=== PATIENT | male | born 1970 | race Caucasian/White ===

== ENCOUNTER 2017-12-28 18:49 | Emergency (ER) | payer MEDICAID, SELFPAY ==
[2017-12-28 18:50] VITALS: BP 161/114; PULSE 113; RESP 16; TEMP 36.4; O2SAT 95; BMI 28.4
--- NOTE | 2017-12-28 19:29 | ED.VISSUMM ---
- ER Visit Summary Date of Service: 12/28/17 Chief Complaint: Headache with a history of migraines History of Present Illness: The patient is a 47 M his typical headache with a long history of migraines. States he has a neurologist. States that he has had CAT scans and MRIs. No history of intracranial bleeds nor anticoagulation or aneurysms. States this headache occurred in the last several days and basically he has headaches daily. He denies fever. He denies head trauma. He denies sinus congestion. This was not a thunderclap headache. Physical Examination: Middle-aged male darkened room. Vital signs are stable afebrile. Blood pressure is elevated 161/114. He does not look septic or toxic. He is no acute distress. HEENT exam photophobia. Pupils round reactive light. No trauma to his face or head. No frontal maxillary sinus tenderness. Pupils are round reactive light. Extra motions are intact. Normal speech. No facial droop. Neck nontender no meningismus. Able to touch his chin to his chest. Lungs clear to auscultation. Heart tachycardic no murmur. Abdomen soft nontender. Moving all 4 extremities. Neurovascular intact. 5 out of 5 power press tender strength. Dorsi plantar flexion intact. Neurologic exam normal. Normal speech. Normal ocular motions. No facial droop. Bilateral power press tender strength. Bilateral dorsi plantar flexion. NIH score is 0. Test Results: None Emergency Department Course and Treatment: Per patient request he wanted IM meds. He did not want an IV and he did not want to wait. He states he normally gets his medications to go home and sleeps it off. Treatment Plan: IM Toradol, p.o. Benadryl and IM Reglan. Disposition: Discharge Impression: Acute headache with a history of recurrent and frequent migraine headaches This note was generated with [employer] dictation software. It may contain incorrect words, spelling, and punctuation that were not noted in review of the chart prior to signing ED Disposition - Plan for ED Patient: Chief Complaint: Headache Referrals: Susan Ferris MD [Primary Care Provider] -
--- NOTE | 2017-12-28 19:32 | ED.DCSUM_ITS ---
- ER Visit Summary Date of Service: 12/28/17 Chief Complaint: Headache with a history of migraines History of Present Illness: The patient is a 47 M his typical headache with a long history of migraines. States he has a neurologist. States that he has had CAT scans and MRIs. No history of intracranial bleeds nor anticoagulation or aneurysms. States this headache occurred in the last several days and basically he has headaches daily. He denies fever. He denies head trauma. He denies sinus congestion. This was not a thunderclap headache. Physical Examination: Middle-aged male darkened room. Vital signs are stable afebrile. Blood pressure is elevated 161/114. He does not look septic or toxic. He is no acute distress. HEENT exam photophobia. Pupils round reactive light. No trauma to his face or head. No frontal maxillary sinus tenderness. Pupils are round reactive light. Extra motions are intact. Normal speech. No facial droop. Neck nontender no meningismus. Able to touch his chin to his chest. Lungs clear to auscultation. Heart tachycardic no murmur. Abdomen soft nontender. Moving all 4 extremities. Neurovascular intact. 5 out of 5 bank representative strength. Dorsi plantar flexion intact. Neurologic exam normal. Normal speech. Normal ocular motions. No facial droop. Bilateral bank representative strength. Bilateral dorsi plantar flexion. NIH score is 0. Test Results: None Emergency Department Course and Treatment: Per patient request he wanted IM meds. He did not want an IV and he did not want to wait. He states he normally gets his medications to go home and sleeps it off. Treatment Plan: IM Toradol, p.o. Benadryl and IM Reglan. Disposition: Discharge Impression: Acute headache with a history of recurrent and frequent migraine headaches This note was generated with [employer] dictation software. It may contain incorrect words, spelling, and punctuation that were not noted in review of the chart prior to signing ED Disposition - Plan for ED Patient: Chief Complaint: Headache Referrals: Susan Ferris MD [Primary Care Provider] -
--- NOTE | 2017-12-28 19:32 | ED.DEP ---
ED Disposition - Plan for ED Patient: Disposition: Home or Assisted Living Chief Complaint: Headache Instructions: ED Headache Migraine Referrals: Susan Ferris MD [Primary Care Provider] - As Needed
[2017-12-28] MEDS: DiphenhydrAMINE 25 MG Capsule 50 MG PO (19:36)
[2017-12-28] MEDS: Ketorolac 60 MG/2 ML Vial IM (19:36)
== END 2017-12-28 19:58 | disposition home or self-care (01) ==
PROVIDERS: Emergency Provider Emergency Medicine; Family Provider Internal Medicine; PCP Internal Medicine
DX: G43.909 Migraine, unspecified, not intractable, without status migrainosus (principal); Z79.899 Other long term (current) drug therapy
CPT/HCPCS: 96372; 99283

== ENCOUNTER 2018-03-09 18:18 | Emergency (ER) | payer MEDICAID, SELFPAY ==
[2018-03-09 18:21] VITALS: BP 144/98; PULSE 105; RESP 17; TEMP 36.7; O2SAT 95; BMI 29.2
--- NOTE | 2018-03-09 18:37 | ED.VISSUMM ---
- ER Visit Summary Date of Service: 03/09/18 Chief Complaint: Headache History of Present Illness: The patient is a 47 M presenting with headache ?1 month. Patient states this is his typical chronic migraine. He states that he was previously seeing a primary care physician and neurologist. He states at the beginning of the month his physicians are no longer accepting his insurance. He denies fever. Denies visual changes. Denies recent trauma. States he typically receives Toradol, Benadryl, Reglan with improvement of his headaches. Denies other complaints. Physical Examination: Vitals are stable. Patient is afebrile. Alert no acute distress. HEENT exam is unremarkable. Neck is supple. No meningismus Lungs are clear and equal bilaterally. Heart is regular rate and rhythm. Abdomen is soft nontender nondistended. Extremities are unremarkable. Skin is warm and dry. No focal neurologic deficit. Remainder of exam is unremarkable. Emergency Department Course and Treatment: Patient is advised that we do not have Reglan at this time. He declines Compazine or other medications. He is given Toradol and Benadryl IM with improvement. He is given Dr. Nicole certified lactation educator for no doc for follow-up. Advised return to ED for worsening complaints. Disposition: Discharged home Impression: Headache This note was generated with [employer] dictation software. It may contain incorrect words, spelling, and punctuation that were not noted in review of the chart prior to signing ED Disposition - Plan for ED Patient: Chief Complaint: Headache Referrals: Susan Ferris MD [Primary Care Provider] -
[2018-03-09] MEDS: Ketorolac 60 MG/2 ML Vial IM (18:43)
[2018-03-09] MEDS: DiphenhydrAMINE 50 MG/ML Syringe 25 MG IM (18:43)
--- NOTE | 2018-03-09 19:22 | ED.DEP ---
ED Disposition - Plan for ED Patient: Chief Complaint: Headache Instructions: ED Headache Migraine Referrals: Susan Ferris MD [Primary Care Provider] - Criss Nicole DO [NON-STAFF] -
[2018-03-09 19:32] VITALS: RESP 16
== END 2018-03-09 19:33 | disposition home or self-care (01) ==
PROVIDERS: Emergency Provider Emergency Medicine; Family Provider Internal Medicine; PCP Internal Medicine
DX: R51 Headache (principal); Z79.899 Other long term (current) drug therapy
CPT/HCPCS: 96372; 99282

== ENCOUNTER 2018-04-24 23:30 | Emergency (ER) | payer MEDICAID, SELFPAY ==
[2018-04-24 23:32] VITALS: BP 169/106; PULSE 105; RESP 18; TEMP 35.8; O2SAT 100; BMI 29.4
--- NOTE | 2018-04-24 23:50 | ED.DCSUM_ITS ---
- ER Visit Summary Date of Service: 04/24/18 Chief Complaint: Headache History of Present Illness: The patient is a 47 M who presents with a headache. History is limited as he is confrontational. While attempting to get history he stated can we just skip all this shit and give me meds. He complains of a headache over 2 weeks gradual onset gradually worsening. He notes that he normally improves with Toradol Reglan and Benadryl. He states this is just like his prior headaches. He denies any chest pain shortness of breath vomiting or fever. Physical Examination: Blood pressure 169/106 temperature 96.4 heart rate 105 pulse ox 100% on room air Patient has limited cooperation with physical examination, he is pacing in the examination room Pupils are equal round reactive to light Heart is regular rate and rhythm Lungs are clear Patient does not appear to have any focal or lateralizing neurological deficits no ataxia normal gait Test Results: Not indicated Emergency Department Course and Treatment: Patient given intramuscular Toradol Reglan and Benadryl muscularly and discharged per his request. Treatment Plan: [] Disposition: Discharge Impression: Migraine This note was generated with [employer] dictation software. It may contain incorrect words, spelling, and punctuation that were not noted in review of the chart prior to signing ED Disposition - Plan for ED Patient: Chief Complaint: Headache Referrals: Susan Ferris MD [Primary Care Provider] -
--- NOTE | 2018-04-24 23:50 | ED.DEP ---
ED Disposition - Plan for ED Patient: Chief Complaint: Headache Instructions: ED Headache Migraine Referrals: Susan Ferris MD [Primary Care Provider] -
[2018-04-25] MEDS: Ketorolac 60 MG/2 ML Vial IM (00:08)
[2018-04-25] MEDS: Metoclopramide 10 MG/2 ML Vial IM (00:08)
[2018-04-25] MEDS: DiphenhydrAMINE 50 MG/ML Syringe 25 MG IM (00:09)
[2018-04-25 00:16] VITALS: RESP 18
--- NOTE | 2018-04-25 00:29 | NURSING ---
PATIENT REPORTS NO REACTION PRIOR TO DISCHARGE.
== END 2018-04-25 00:29 | disposition home or self-care (01) ==
PROVIDERS: Emergency Provider Emergency Medicine; Family Provider Internal Medicine; PCP Internal Medicine
DX: G43.909 Migraine, unspecified, not intractable, without status migrainosus (principal); Z79.899 Other long term (current) drug therapy
CPT/HCPCS: 96372; 99282

== ENCOUNTER 2018-06-19 02:14 | Emergency (ER) | payer MEDICAID, SELFPAY ==
[2018-06-19 02:15] VITALS: BP 195/118; PULSE 87; RESP 16; TEMP 36.8; O2SAT 95; BMI 29.7
--- NOTE | 2018-06-19 02:19 | ED.VISSUMM ---
- ER Visit Summary Date of Service: 06/19/18 Chief Complaint: Migraine History of Present Illness: The patient is a 47 M presents to the emergency department headache. Patient has a history of migraines. He does follow with the neurologist. He has been on multiple medications and has had Botox injections. He describes his headache is gradually progressive over the past 3 days. He states it feels the same as his normal migraines. He denies any fevers or chills. He denies any neck pain. He denies any carbon monoxide exposure. Physical Examination: Well-appearing patient is in no acute distress. Head is normocephalic, atraumatic. Pupils equal round reactive, extraocular muscles intact. There is no temporal artery tenderness. There is no vesicular rash. Neck supple. Kernig's and Brudzinski's are negative. Heart regular rate and rhythm. Lungs clear, chest nontender. Abdomen soft, nontender, nondistended. Neuro exam displays no focal or lateralizing deficit. 2+ symmetric lower extremity reflexes. No clonus. No ataxia or gait abnormality. Test Results: [] Emergency Department Course and Treatment: Patient is well-appearing. He is mildly hypertensive, but states he has not taken his blood pressure medication. He is not toxic. He is not meningitic or encephalopathic. He requested IM medications. These were ordered. The patient does not want to stay, he rather go home because he states these always work. I did offer to observe him but he does not want to leave. He is counseled that if his symptoms do not improve or return he should return immediately to the emergency department. He is comfortable this plan of care. Treatment Plan: [] Disposition: Discharge Impression: Migraine headache This note was generated with [employer] dictation software. It may contain incorrect words, spelling, and punctuation that were not noted in review of the chart prior to signing ED Disposition - Plan for ED Patient: Chief Complaint: Headache Instructions: ED Headache Migraine Referrals: Susan Ferris MD [Primary Care Provider] -
[2018-06-19] MEDS: DiphenhydrAMINE 50 MG/ML Syringe IM (02:27)
[2018-06-19] MEDS: Ketorolac 60 MG/2 ML Vial IM (02:28)
[2018-06-19] MEDS: Metoclopramide 10 MG/2 ML Vial IM (02:29)
== END 2018-06-19 02:38 | disposition home or self-care (01) ==
LOC: ED 02:36
PROVIDERS: Emergency Provider Emergency Medicine; Family Provider Internal Medicine; PCP Internal Medicine
DX: G43.909 Migraine, unspecified, not intractable, without status migrainosus (principal); Z72.0 Tobacco use; Z79.899 Other long term (current) drug therapy
CPT/HCPCS: 96372; 99281

== ENCOUNTER 2018-08-03 00:40 | Emergency (ER) | payer MEDICAID, SELFPAY ==
[2018-08-03 00:41] VITALS: BP 174/117; PULSE 89; RESP 16; TEMP 36.9; O2SAT 98
--- NOTE | 2018-08-03 01:29 | ED.VISSUMM ---
- ER Visit Summary Date of Service: 08/03/18 Chief Complaint: [Headache] History of Present Illness: The patient is a 47 M [presents the emergency department with a headache that he sat chronically. Patient states he always has some headache but usually waits until he cannot tolerate any more than comes to the emergency department. Patient states that he has seen a neurologist and has gone through Botox injections and various other treatments. Typically Toradol, Benadryl, and Reglan worked for him. Patient describes the headache as throbbing and severe involving the entire head. He complains of photophobia and loud sounds bothering him. Headache is typical of his migraines. He has not had any falls or head injuries. He has not had recent illness.] Physical Examination: [HEENT-PERRLA, EOMI. Cranial nerves II through XII grossly intact. TMs clear. Mucous membranes moist. No adenopathy. Cardiovascular-regular rate and rhythm without murmur or ectopy Lungs-clear to auscultation, chest wall stable without crepitus or subcu emphysema Abdomen-normoactive bowel sounds, soft, nontender, no rebound or rigidity, no peritoneal signs. Neuro xcjv-[id number]-droa and heel cheek testing within normal limits, negative Romberg, negative pronator drift, fundi benign Extremities-intact ?4, normal range of motion, normal pulses, atraumatic] Test Results: None indicated [] Emergency Department Course and Treatment: [Patient was given Toradol, Reglan, Benadryl IM.] Patient did not want IV fluids. Patient does not wish to wait for the medication to take effect. Treatment Plan: [Patient follow-up with his primary care physician as needed Disposition: [Discharged home in stable condition] Impression: [Migrainous cephalgia.] This note was generated with [employer] dictation software. It may contain incorrect words, spelling, and punctuation that were not noted in review of the chart prior to signing ED Disposition - Plan for ED Patient: Chief Complaint: Headache Referrals: Susan Ferris MD [Primary Care Provider] -
--- NOTE | 2018-08-03 01:31 | ED.DEP ---
ED Disposition - Plan for ED Patient: Chief Complaint: Headache Instructions: ED Headache Migraine Referrals: Susan Ferris MD [Primary Care Provider] - As Needed
[2018-08-03] MEDS: DiphenhydrAMINE 50 MG/ML Syringe 25 MG IM (01:39)
[2018-08-03] MEDS: Metoclopramide 10 MG/2 ML Vial IM (01:39)
[2018-08-03] MEDS: Ketorolac 60 MG/2 ML Vial IM (01:40)
[2018-08-03 01:43] VITALS: PULSE 78; RESP 16; O2SAT 98
== END 2018-08-03 02:07 | disposition home or self-care (01) ==
PROVIDERS: Emergency Provider Emergency Medicine; Family Provider Internal Medicine; PCP Internal Medicine
DX: G43.909 Migraine, unspecified, not intractable, without status migrainosus (principal); Z79.899 Other long term (current) drug therapy
CPT/HCPCS: 96372; 99282

== ENCOUNTER 2018-08-24 05:32 | Emergency (ER) | payer MEDICAID, SELFPAY ==
[2018-08-24 05:33] VITALS: BP 166/106; PULSE 116; RESP 20; TEMP 36.6; O2SAT 94; BMI 29.5
--- NOTE | 2018-08-24 05:43 | ED.DCSUM_ITS ---
- ER Visit Summary Date of Service: 08/24/18 Chief Complaint: Headache History of Present Illness: The patient is a 47 M who presents with a headache. He has a history of chronic headaches for years. He states that this is exactly the same in character and location to his previous headaches. He states he has had his current persistent headache for at least 3 weeks. He is actually scheduled to see his neurologist. He states they plan to start him on a new medication. He does report photophobia which is also typical of his migraines. He states that he is just here to get his shots and wants to go home. He denies fevers nausea vomiting or head injury. Physical Examination: Blood pressure 166/106 heart rate 116 Moist mucous membranes Neck supple Heart regular rate and rhythm Lungs clear Alert and oriented with no focal or lateralizing neurological deficits Test Results: Not indicated Emergency Department Course and Treatment: Patient treated with intramuscular Toradol Reglan and Benadryl which is usual medication combination that provides relief. Patient discharged. Treatment Plan: [] Disposition: Discharge Impression: Chronic headache This note was generated with [employer] dictation software. It may contain incorrect words, spelling, and punctuation that were not noted in review of the chart prior to signing ED Disposition - Plan for ED Patient: Chief Complaint: Headache Referrals: Susan Ferris MD [Primary Care Provider] -
--- NOTE | 2018-08-24 05:43 | ED.DEP ---
ED Disposition - Plan for ED Patient: Chief Complaint: Headache Instructions: ED Cephalgia Unspecified Referrals: Susan Ferris MD [Primary Care Provider] -
[2018-08-24] MEDS: Ketorolac 60 MG/2 ML Vial IM (05:48)
[2018-08-24] MEDS: Metoclopramide 10 MG/2 ML Vial IM (05:48)
[2018-08-24] MEDS: DiphenhydrAMINE 50 MG/ML Syringe 25 MG IM (05:49)
[2018-08-24 06:05] VITALS: BP 143/113; PULSE 107; RESP 14; O2SAT 93
== END 2018-08-24 06:07 | disposition home or self-care (01) ==
PROVIDERS: Emergency Provider Emergency Medicine; Family Provider Internal Medicine; PCP Internal Medicine
DX: R51 Headache (principal); G89.29 Other chronic pain; H53.149 Visual discomfort, unspecified; Z79.899 Other long term (current) drug therapy
CPT/HCPCS: 96372; 99282

== ENCOUNTER 2018-10-18 03:58 | Emergency (ER) | payer MEDICAID, SELFPAY ==
[2018-10-18 03:58] VITALS: BMI 28.4
[2018-10-18 03:59] VITALS: BP 154/118; PULSE 86; RESP 16; TEMP 36.4; O2SAT 95; BMI 29.9
--- NOTE | 2018-10-18 04:04 | ED.VISSUMM ---
- ER Visit Summary Date of Service: 10/18/18 Chief Complaint: Headache History of Present Illness: The patient is a 47 M who has a long history of headaches/migraines. He states that he is recently been started on a new medication with his neurologist at [facility]. He states that since starting it it has been about 2 months since he is needed to come to the emergency room. He notes bitemporal headache, nausea, photophobia. He apologizes for his current behavior but states that he is over this. He states he just wants his shots and wants to go home to go to sleep. Physical Examination: Afebrile vital signs stable Gen: Well-nourished well-developed Head: Normocephalic atraumatic Eyes: Perrl EOMI no photophobia ENT: TMs clear no rhinorrhea moist mucous membranes Neck: Supple no lymphadenopathy no JVD nontender CVS: Regular rate rhythm no murmurs normal S1-S2 Respiratory: No distress clear to auscultation bilaterally chest nontender Abdomen: Soft nontender nondistended normal bowel sounds no masses Extremity: Nontender no edema Skin: Normal color no rash Neuro: alert orientated ?3 CN II-XII intact normal strength sensation reflexes gait cerebellar Emergency Department Course and Treatment: Patient will be given a dose of Toradol Reglan and Benadryl. He needs to follow-up with his doctors. I am going to leave a message for case management. Impression: 1. Migraine headache This note was generated with [employer] dictation software. It may contain incorrect words, spelling, and punctuation that were not noted in review of the chart prior to signing ED Disposition - Plan for ED Patient: Disposition: Home or Assisted Living Chief Complaint: Headache Instructions: ED Headache Migraine Referrals: Susan Ferris MD [Primary Care Provider] - Keep Kenzie appointment
--- NOTE | 2018-10-18 04:11 | ED.DCSUM_ITS ---
- ER Visit Summary Date of Service: 10/18/18 Chief Complaint: Headache History of Present Illness: The patient is a 47 M who has a long history of headaches/migraines. He states that he is recently been started on a new medication with his neurologist at [facility]. He states that since starting it it has been about 2 months since he is needed to come to the emergency room. He notes bitemporal headache, nausea, photophobia. He apologizes for his current behavior but states that he is over this. He states he just wants his shots and wants to go home to go to sleep. Physical Examination: Afebrile vital signs stable Gen: Well-nourished well-developed Head: Normocephalic atraumatic Eyes: Perrl EOMI no photophobia ENT: TMs clear no rhinorrhea moist mucous membranes Neck: Supple no lymphadenopathy no JVD nontender CVS: Regular rate rhythm no murmurs normal S1-S2 Respiratory: No distress clear to auscultation bilaterally chest nontender Abdomen: Soft nontender nondistended normal bowel sounds no masses Extremity: Nontender no edema Skin: Normal color no rash Neuro: alert orientated ?3 CN II-XII intact normal strength sensation reflexes gait cerebellar Emergency Department Course and Treatment: Patient will be given a dose of Toradol Reglan and Benadryl. He needs to follow-up with his doctors. I am going to leave a message for case management. Impression: 1. Migraine headache This note was generated with [employer] dictation software. It may contain incorrect words, spelling, and punctuation that were not noted in review of the chart prior to signing ED Disposition - Plan for ED Patient: Disposition: Home or Assisted Living Chief Complaint: Headache Instructions: ED Headache Migraine Referrals: Susan Ferris MD [Primary Care Provider] - Keep Kenzie appointment
[2018-10-18] MEDS: Ketorolac 60 MG/2 ML Vial IM (04:26)
[2018-10-18] MEDS: Metoclopramide 10 MG/2 ML Vial IM (04:27)
[2018-10-18] MEDS: DiphenhydrAMINE 50 MG/ML Syringe IV (04:27)
== END 2018-10-18 04:44 | disposition home or self-care (01) ==
PROVIDERS: Emergency Provider Emergency Medicine; Family Provider Internal Medicine; PCP Internal Medicine
DX: G43.909 Migraine, unspecified, not intractable, without status migrainosus (principal); I10 Essential (primary) hypertension; Z79.899 Other long term (current) drug therapy
CPT/HCPCS: 96372; 96374; 99282

== ENCOUNTER 2018-12-07 07:44 | Emergency (ER) | payer MEDICAID, SELFPAY ==
[2018-12-07 07:45] VITALS: BP 175/97; PULSE 90; RESP 18; TEMP 36.1; O2SAT 98; BMI 29.7
[2018-12-07 07:48] VITALS: TEMP 36.1
--- NOTE | 2018-12-07 08:02 | ED.DCSUM_ITS ---
- ER Visit Summary Date of Service: 12/07/18 Chief Complaint: Dental pain History of Present Illness: The patient is a 48 M with dental pain that started yesterday evening while eating dinner. The pain is in his left mandible region. Pain is severe. No other complaints. He tried Orajel. Physical Examination: Afebrile and vital signs unremarkable. Inspection shows focal decay and tenderness at tooth #17. No abscess noted. Gums unremarkable. No tongue elevation or trismus noted. Skin appears normal. No meningeal signs. No lymphadenopathy. Cranial nerves grossly intact. Test Results: None indicated Emergency Department Course and Treatment: Patient treated with Pen-Vee K, naproxen, and Corona here. He received a prescription for naproxen and Pen-Vee K. Follow-up with his dentist. Return for any new or worsening issues. Treatment Plan: As above Disposition: Discharge Impression: 1. Dental pain This note was generated with [employer] dictation software. It may contain incorrect words, spelling, and punctuation that were not noted in review of the chart prior to signing ED Disposition - Plan for ED Patient: Chief Complaint: Dental Referrals: Susan Ferris MD [Primary Care Provider] -
--- NOTE | 2018-12-07 08:02 | ED.DEP ---
ED Disposition - Plan for ED Patient: Chief Complaint: Dental Instructions: ED Tooth Pain Prescriptions: Naproxen [Naprosyn] 500 mg PO BID PRN #20 tab Penicillin V Potassium 500 mg PO 4X/DAY #40 tab Additional Instructions: follow up with your dentist
[2018-12-07] MEDS: Penicillin Vk 250 MG Tablet 500 MG PO (08:19)
[2018-12-07] MEDS: HYDROcodone Bitartrate/Apap 5/325 Tablet PO (08:19)
[2018-12-07] MEDS: Naproxen 500 MG Tablet PO (08:19)
== END 2018-12-07 08:26 | disposition home or self-care (01) ==
PROVIDERS: Emergency Provider Emergency Medicine; Family Provider Internal Medicine; PCP Internal Medicine
DX: K08.89 Other specified disorders of teeth and supporting structures (principal); K02.9 Dental caries, unspecified; G43.909 Migraine, unspecified, not intractable, without status migrainosus; Z79.899 Other long term (current) drug therapy
CPT/HCPCS: 99283

== ENCOUNTER 2019-01-18 22:43 | Emergency (ER) | payer MEDICAID, SELFPAY ==
[2019-01-18 22:44] VITALS: BP 159/102; PULSE 85; RESP 18; TEMP 36.7; O2SAT 98; BMI 29.2
--- NOTE | 2019-01-18 23:15 | ED.VISSUMM ---
- ER Visit Summary Date of Service: 01/18/19 Chief Complaint: Migraine History of Present Illness: The patient is a 48 M presents with his typical migraine. He states that he has been to the emergency department 125 times for this. He denies any new or concerning features. It was not sudden or severe at onset. It is the exact same as usual. He would like intramuscular Toradol, Benadryl, and Reglan and then he states that he will go home and rest. Physical Examination: Vitals within normal limits. Not in distress. Neurologic and mental status exam normal. Test Results: None performed Emergency Department Course and Treatment: He was given his medications as requested. He felt better. Discharged in stable condition. Neurologic exam normal. He does not want a CT scan. Treatment Plan: Disposition: Home stable Impression: Initial encounter migraine headache This note was generated with [employer] dictation software. It may contain incorrect words, spelling, and punctuation that were not noted in review of the chart prior to signing ED Disposition - Plan for ED Patient: Instructions: ED Headache Migraine Referrals: Susan Ferris MD [Primary Care Provider] -
[2019-01-18] MEDS: Metoclopramide 10 MG/2 ML Vial 5 MG IM (23:34)
[2019-01-18] MEDS: DiphenhydrAMINE 50 MG/ML Syringe IM (23:34)
[2019-01-18] MEDS: Ketorolac 60 MG/2 ML Vial IM (23:34)
[2019-01-19 00:09] VITALS: BP 145/75; PULSE 85; RESP 17; O2SAT 99
== END 2019-01-19 00:10 | disposition home or self-care (01) ==
LOC: ED 23:29
PROVIDERS: Emergency Provider Emergency Medicine; Family Provider Internal Medicine; PCP Internal Medicine
DX: G43.909 Migraine, unspecified, not intractable, without status migrainosus (principal); Z79.899 Other long term (current) drug therapy
CPT/HCPCS: 96372; 99282

== ENCOUNTER 2019-06-21 21:35 | Emergency (ER) | payer MEDICAID, SELFPAY ==
[2019-06-21 21:36] VITALS: BP 148/88; PULSE 71; PULSE 78; RESP 17; RESP 18; TEMP 36.2; O2SAT 95; BMI 29.0
--- NOTE | 2019-06-21 22:34 | ED.DCSUM_ITS ---
- ER Visit Summary Date of Service: 06/21/19 Chief Complaint: Abdominal pain History of Present Illness: The patient is a 48 M who presents with abdominal pain. Patient complains of about 2 weeks of lower abdominal pain which is worse on the left side. He also complains of pain across his lower back. He states his pain goes down into his left thigh. He describes it as pressure-like fullness. No nausea vomiting diarrhea or fevers. He does complain of constipation. He was seen at [place] emergency department last night started on Colace for constipation. He has had a bowel movement since that time. He states he is worried this could be related to his thyroid. He is also concerned that he has a bacterial infection. Physical Examination: Afebrile vitals normal No distress resting comfortably Moist mucous membranes Heart regular rate and rhythm Lungs are clear The abdomen soft nontender nondistended Normal examination of the left lower extremity no soft tissue swelling no ecchymosis he does have some thigh tenderness Test Results: CBC CMP lipase urinalysis all normal. CT of the abdomen and pelvis shows incomplete distention of the descending and sigmoid colon and wall thickening cannot be ruled out. Emergency Department Course and Treatment: Work-up as above essentially unremarkable. CT the abdomen and pelvis does not show overt evidence of acute process although wall thickening cannot be ruled out. Based on this alone I would not empirically treat for colitis at this time. However I did recommend that he have further outpatient work-up such as a colonoscopy. He was advised to follow-up with his primary care physician for referral. He understands to return for new or worsening symptoms and was discharged home. Treatment Plan: [] Disposition: Discharge Impression: Abdominal pain This note was generated with [employer] dictation software. It may contain incorrect words, spelling, and punctuation that were not noted in review of the chart prior to signing ED Disposition - Plan for ED Patient: Referrals: Susan Ferris MD [Primary Care Provider] -
[2019-06-21 23:05] LABS: Bacteria 0 SEEN /hpf (None Seen); Mucous, Urine 0 SEEN /hpf (<or=2+); Red Blood Cells-Urine 0 SEEN /hpf (0-5); Squamous Epithelial Cells - UA 0 SEEN /hpf (0-5); White Blood Cells 0 SEEN /hpf (0-5)
[2019-06-21 23:06] LABS: Absolute Lymphocyte Count 2.59 X10^3/uL (0.83-4.51); Absolute Neutrophil Count 4.9 X10^3/uL (2.0-7.7); Basophil# 0.06 X10^3/uL; Basophil% 0.7 % (0-1); Eosinophil# 0.19 X10^3/uL; Eosinophils% 2.3 % (0-5); Hematocrit 48.1 % (40-54); Hemoglobin 16.2 g/dL (13.0-16.5); Lymphocyte # 2.59 X10^3/ul (4.0); Lymphocyte % 31.1 % (19-41); Mean Corp Hgb Conc 33.7 g/dL (32-36); Mean Corpuscular Hgb 30.9 pg (27.0-32.0); Mean Corpuscular Volume 91.6 fL (80-94); Monocyte# 0.53 X10^3/uL; Monocyte% 6.4 % (0-10); NRBC Flagged by Analyzer 0 % (0-5); Neutrophil # 4.94 X10^3/uL (2.7-7.7); Neutrophil % 59.3 % (47-70); Platelet Count 264 K/mm3 (150-450); RBC Distribution Width CV 11.9 % (11.6-14.6); RBC Distribution Width SD 40.1 fl (35.1-43.9); Red Blood Count 5.25 M/mm3 (4.6-6.2); White Blood Count 8.3 K/mm3 (4.4-11.0)
[2019-06-21 23:11] LABS: Color, Urine Yellow (Yellow); Glucose, Dipstick Normal (Normal); Ketone-Dipstick Negative (Negative); Leukocyte Esterase-Dipstick Negative /ul (Negative); Nitrite-Dipstick Negative (Negative); Occult Blood-Urine Negative /ul (Negative); Protein-Dipstick Negative (Negative); Urine Bilirubin Dipstick Negative (Negative); Urine Clarity Cloudy (Clear); Urine Urobilinogen Normal (Normal)
[2019-06-21 23:16] LABS: Amorphous Sediment 2+
[2019-06-21 23:22] LABS: ALB/GLOB Ratio 1.3 RATIO (0.9-2.4); AST(SGOT) 20 U/L (15-37); Alanine Aminotransfer ALT/SGPT 30 U/L (16-61); Albumin, Serum 4.3 g/dL (3.2-5.0); Alkaline Phosphatase 114 U/L (45-117); Anion Gap 4 (5-15); BUN 10 mg/dL (7-18); BUN/Creat Ratio 9.4 RATIO (10-20); Calcium,Total 8.8 mg/dL (8.5-10.1); Chloride 106 mmol/L (98-107); Creatinine, Serum 1.06 mg/dL (0.70-1.30); EST Glomerular Filtration Rate 79 mL/min (>60); Est Glom Filt Rate - Afr Amer 96 mL/min (>60); Estimated Creatinine Clearance 83.35 ml/min; Globulin 3.3 g/dL (2.2-4.2); Glucose 84 mg/dL (74-106); Lipase 125 U/L (73-393); Potassium 4.2 mmol/L (3.5-5.1); Protein, Total 7.6 g/dL (6.4-8.2); Sodium Level 141 mmol/L (136-145)
--- NOTE | 2019-06-22 00:15 | CT_ITS ---
HISTORY:LOW ABD AND LT GROIN PAIN X SEVERAL WEEKS. Prior appendectomy LOW ABD AND LT GROIN PAIN X SEVERAL WEEKS. Prior appendectomy TECHNIQUE: Helically acquired images were obtained of the abdomen and pelvis following IV contrast. A radiation dose optimization technique was used for this scan. IV Contrast dosage and agent:100ml Isovue 300 Oral contrast: Yes COMPARISON: None FINDINGS: # of images incl. paperwork: [phone] LOWER CHEST: Lung bases are clear. No cardiomegaly or pericardial effusion observed. LIVER: Homogeneous. No focal mass. GALLBLADDER AND BILIARY TREE: No calcified gallstones. There is no gallbladder distension or wall edema. No intra- or extrahepatic biliary ductal dilation. KIDNEYS AND URETERS: Normal renal size and position. There is no hydronephrosis. ADRENAL GLANDS: Non-enlarged. SPLEEN: Normal size without focal cystic or solid mass. PANCREAS: No focal cystic or solid mass. BOWEL: The stomach is unremarkable The small bowel is unremarkable No mechanical obstruction No diverticulitis There is incomplete distention of the descending and sigmoid colon. Appendectomy LYMPH NODES: No enlarged mesenteric or retroperitoneal lymph nodes. PERITONEUM: No ascites or free air. No other fluid collection. VESSELS: Aorta is non-dilated. URINARY BLADDER: Incompletely distended, otherwise grossly unremarkable. REPRODUCTIVE ORGANS: The prostate gland measures approximately 4.2 x 3.6 cm ABDOMINAL WALL: No discrete abdominal or pelvic wall hernia observed. BONES: No acute osseous abnormality CT/Abdomen/Pelvis WITH Contrast IMPRESSION: Incomplete distention of the descending and sigmoid colon. I cannot exclude wall thickening. Correlate clinically for colitis. Appendectomy No evidence of an inguinal hernia Individualized dose optimization techniques were used for this CT. at 0044 Reported and signed by: Ruby Chu DO Electronically Signed: Ruby Chu DO at 0:42 EDT Tel , Service support ,
--- NOTE | 2019-06-22 01:13 | ED.DEP ---
ED Disposition - Plan for ED Patient: Instructions: ABDOMINAL PAIN, Unkown Cause, (Male) Referrals: Susan Ferris MD [Primary Care Provider] -
[2019-06-22 01:21] VITALS: PULSE 81; RESP 16; O2SAT 100
== END 2019-06-22 01:22 | disposition home or self-care (01) ==
LOC: ED 22:43
PROVIDERS: Emergency Provider Emergency Medicine; Family Provider Internal Medicine; PCP Internal Medicine
DX: R10.9 Unspecified abdominal pain (principal); K59.00 Constipation, unspecified; M54.5 Low back pain; I10 Essential (primary) hypertension; F31.9 Bipolar disorder, unspecified; Z79.899 Other long term (current) drug therapy
CPT/HCPCS: 74177; 80053; 81001; 83690; 85025; 99283; Q9967

== ENCOUNTER → 2019-07-19 15:31 | Outpatient (CLI) | payer MEDICAID, SELFPAY ==
[2019-06-21 21:36] VITALS: BMI 29.0
== END ==
PROVIDERS: Family Provider Internal Medicine; PCP Internal Medicine; Referring Provider Otolaryngology Otolaryngology/Facial Plastic Surgery; Visit Provider Otolaryngology Otolaryngology/Facial Plastic Surgery
DX: J02.9 Acute pharyngitis, unspecified (principal)
CPT/HCPCS: 87070; 87077

== ENCOUNTER 2020-07-28 06:11 | Emergency (ER) | payer MEDICAID, SELFPAY ==
[2020-07-28 06:12] VITALS: BP 155/117; PULSE 89; RESP 12; TEMP 36.9; BMI 31.7
[2020-07-28 06:18] VITALS: O2SAT 93
--- NOTE | 2020-07-28 06:26 | EKG12_ITS ---
Test Reason : CP Blood Pressure : / mmHG Vent. Rate : 088 BPM Atrial Rate : 088 BPM P-R Int : 150 ms QRS Dur : 092 ms QT Int : 370 ms P-R-T Axes : 063 030 045 degrees QTc Int : 447 ms Normal sinus rhythm Normal ECG Confirmed by CHERYL GREER, LILLY ([id number]), publishing editor LUIS A TEJADA ([id number]) on 07/31/2020 11:21:09 AM Referred By: REUBEN Confirmed By:LILLY LUNA MD
--- NOTE | 2020-07-28 06:26 | ED.DCSUM_ITS ---
History of Present Illness Chief Complaint: Chest Pain Informant: Patient Onset: Days - 3 days Context: Gradual Onset Current Severity: Mild Maximum Severity: Moderate Narrative: Patient presents with waxing and waning chest tightness over the past 3 days. He believes this is secondary to his blood pressure being elevated. Systolic pressures been in the 150s. He denies recent change to his blood pressure medication. He denies headache, nausea, or vomiting. He does have intermittent shortness of breath. - Past Medical History (1) GERD (gastroesophageal reflux disease) Status: Chronic (2) Hypertension Status: Chronic (3) Asthma Status: Chronic (4) Bipolar 1 disorder Status: Chronic Past Medical History - Allergies and Home Meds Allergies/Adverse Reactions: Allergies No Known Allergies Allergy (Verified 07/28/20 06:17) Primary Care Physician: Susan Ferris MD [Primary Care Provider] - Prior records reviewed: Yes Surgical History: appendectomy Lives: Spouse/ Significant Other Smoking Status: Never smoker Review of Systems General: Denies: Chills, Fever Eyes: Denies: Visual changes - bilaterally ENT: Denies: Bilateral ear pain Cardiovascular: Reports: Chest pain. Denies: Heart racing Respiratory: Reports: Dyspnea. Denies: Cough, Sputum Gastrointestinal: Denies: Abdominal pain, Nausea, Vomiting, Diarrhea Musculoskeletal: Denies: Back pain, Swelling, Extremity Pain Skin: Denies: Rash Neurological: Denies: Headache, Weakness, Parasthesia Hematologic: Denies: Easy bruising, Easy bleeding Allergy: Denies: Uticaria Physical Exam Vital Signs/Narrative: Vital Signs Temp Pulse Resp BP Pulse Ox 07/28/20 06:18 93 07/28/20 06:12 98.5 F 89 12 155/117 H Inital Vital Signs reviewed: Yes General: Well nourished, Well developed Head: Normocephalic ENT: Moist mucous membranes Neck: Supple Cardiovascular: Regular rate, Regular rhythm Respiratory: No distress, CTA bilaterally, Chest nontender Abdomen: Soft, Nontender Extremities: Nontender Skin: Normal color Neurological: Alert, Oriented x3, Normal Strength, Normal Sensation Psychological: Normal affect Diagnostic/Tx/Re-eval Impressions Chest X-Ray 07/28/20 06:35 IMPRESSION: No acute cardiopulmonary disease. Electronically Signed: Kyle Saavedra MD at 6:46 EDT , Service support , 07/28/20 06:35 Chest 1 View (Portable) [RAD] Stat Laboratory Results 07/28/20 07/28/20 06:17 06:17 WBC 10.4 RBC 5.16 Hgb 16.3 Hct 47.2 MCV 91.5 MCH 31.6 MCHC 34.5 RDW Std Deviation 39.6 RDW Coeff of Elan 11.9 Plt Count 320 MPV 9.0 Immature Gran % (Auto) 0.300 Neut % (Auto) 53.1 Lymph % (Auto) 34.6 [place] % (Auto) 7.6 Eos % (Auto) 3.7 Baso % (Auto) 0.7 Absolute Neuts (auto) 5.5 Absolute Lymphs (auto) 3.59 Nucleated RBC % 0 Sodium 139 Potassium 4.1 Chloride 105 Carbon Dioxide 29.0 Anion Gap 5 BUN 19 H Creatinine 1.12 Estim Creat Clear Calc 78.04 Est GFR (MDRD) Af Amer 90 Est GFR (MDRD) Non-Af 74 BUN/Creatinine Ratio 17.0 Glucose 101 Calcium 8.8 Troponin I < 0.015 - EKG Initial EKG Interpretation: Sinus Rhythm - Sinus 88 with no acute ischemia. - Medical Decision Making Patient was initially given 5 mg Lopressor for blood pressure. Blood pressure remained elevated around 160 systolic. He was then given a total of 20 mg of labetalol. At this time patient states he feels significantly improved. He does advise me that his doctor had placed him on his second blood pressure medicine not too long ago, however he did not like the idea of taking 2 medicines so he never took the second agent. He states he is now willing to do so. I spoke with his primary care physician, Dr. Ferris. Patient had most recently been placed on metoprolol in addition to his verapamil. He will be given a new prescription for this. He is advised to get a new blood pressure cuff and keep a journal of his blood pressures at home. He is to follow-up with Dr. Ferris in 2 to 3 weeks. ED Disposition - Plan for ED Patient: Disposition: Home or Assisted Living Diagnosis: Hypertension, Atypical chest pain Instructions: ED Hypertension Established Prescriptions: Metoprolol(XL)Succ [Toprol Xl (Beta Ana)] 50 mg PO DAILY #30 tab Transmission Status: Pending to [facility] - [place] - [address] Referrals: Susan Ferris MD [Primary Care Provider] - 1-2 Weeks
[2020-07-28 06:32] LABS: Absolute Lymphocyte Count 3.59 X10^3/uL (0.83-4.51); Absolute Neutrophil Count 5.5 X10^3/uL (2.0-7.7); Basophil# 0.07 X10^3/uL; Basophil% 0.7 % (0-1); Eosinophil# 0.38 X10^3/uL; Eosinophils% 3.7 % (0-5); Hematocrit 47.2 % (40-54); Hemoglobin 16.3 g/dL (13.0-16.5); Lymphocyte # 3.59 X10^3/ul (4.0); Lymphocyte % 34.6 % (19-41); Mean Corp Hgb Conc 34.5 g/dL (32-36); Mean Corpuscular Hgb 31.6 pg (27.0-32.0); Mean Corpuscular Volume 91.5 fL (80-94); Monocyte# 0.79 X10^3/uL; Monocyte% 7.6 % (0-10); NRBC Flagged by Analyzer 0 % (0-5); Neutrophil # 5.53 X10^3/uL (2.7-7.7); Neutrophil % 53.1 % (47-70); Platelet Count 320 K/mm3 (150-450); RBC Distribution Width CV 11.9 % (11.6-14.6); RBC Distribution Width SD 39.6 fl (35.1-43.9); Red Blood Count 5.16 M/mm3 (4.6-6.2); White Blood Count 10.4 K/mm3 (4.4-11.0)
--- NOTE | 2020-07-28 06:35 | RAD_ITS ---
STUDY: X-RAY CHEST REASON FOR EXAM: Male, 49 years old. Chest tightness for one day. History of hypertension. TECHNIQUE: AP portable chest. COMPARISON: February 07, 2014. FINDINGS: The lungs are clear and expanded. There is no demonstrated pleural abnormality. Normal size heart. Normal mediastinum and salina. Normal visualized pulmonary arteries. Normal visualized aortic arch and descending thoracic aorta. Normal visualized thoracic spine. Normal visualized ribs, clavicles, and shoulders. There is no demonstrated abnormality of the visualized soft tissue structures of the upper abdomen. RAD/Chest 1 View (Portable) IMPRESSION: No acute cardiopulmonary disease. Electronically Signed: Kyle Saavedra MD at 6:46 EDT , Service support ,
[2020-07-28] MEDS: Metoprolol Tartrate 5 MG/5 ML Vial IV (06:45)
[2020-07-28] MEDS: Aspirin 81 MG TAB.CHEW 324 MG PO (06:45)
[2020-07-28 06:58] LABS: Anion Gap 5 (5-15); BUN 19 mg/dL (7-18); Calcium,Total 8.8 mg/dL (8.5-10.1); Chloride 105 mmol/L (98-107); Creatinine, Serum 1.12 mg/dL (0.70-1.30); EST Glomerular Filtration Rate 74 mL/min (>60); Est Glom Filt Rate - Afr Amer 90 mL/min (>60); Estimated Creatinine Clearance 78.04 ml/min; Glucose 101 mg/dL (74-106); Potassium 4.1 mmol/L (3.5-5.1); Sodium Level 139 mmol/L (136-145)
[2020-07-28 07:53] VITALS: BP 162/105; PULSE 64; RESP 18; O2SAT 98
[2020-07-28] MEDS: Labetalol (Prefilled) 20 MG/4 ML 10 MG IV (07:55)
[2020-07-28 08:03] VITALS: BP 153/99; PULSE 73; RESP 13; O2SAT 98
[2020-07-28 08:25] VITALS: BP 145/112; PULSE 67; RESP 12; O2SAT 98
[2020-07-28] MEDS: Labetalol 100 MG/20 ML Vial 10 MG IV (08:25)
[2020-07-28 08:53] VITALS: BP 148/104; PULSE 74; RESP 14; O2SAT 97
== END 2020-07-28 09:00 | disposition home or self-care (01) ==
PROVIDERS: Emergency Provider Emergency Medicine; PCP Internal Medicine
DX: I10 Essential (primary) hypertension (principal); R07.89 Other chest pain; F31.9 Bipolar disorder, unspecified
CPT/HCPCS: 71045; 80048; 84484; 85025; 93005; 96374; 96375; 96376; 99284; A4216

== ENCOUNTER 2020-09-07 06:58 | Emergency (ER) | payer MEDICAID, SELFPAY ==
[2020-08-27 12:40] VITALS: BMI 31.7
[2020-09-07 06:59] VITALS: BP 168/101; PULSE 107; RESP 22; TEMP 37.1; O2SAT 96; BMI 31.4
--- NOTE | 2020-09-07 07:06 | ED.DEP ---
ED Disposition - Plan for ED Patient: Instructions: ED Tooth Pain Prescriptions: Naproxen [Naprosyn] 500 mg PO BID PRN #20 tab Prescription Printed Penicillin V Potassium 500 mg PO 4X/DAY #40 tab Prescription Printed Referrals: Susan Ferris MD [Primary Care Provider] -
--- NOTE | 2020-09-07 07:09 | ED.VISSUMM ---
- ER Visit Summary Date of Service: 09/07/20 Chief Complaint: Dental pain History of Present Illness: The patient is a 49 M presenting with dental pain. Patient states this started 2 days ago. He felt his tooth crack. He has tried Tylenol and Orajel at home. He has a dentist but is unable to be seen on the weekend. He denies fever. Denies swelling. Denies other complaints. Physical Examination: Vitals are stable. Patient is afebrile. Alert no acute distress. HEENT exam tenderness left upper and lower molar. Fractured tooth surrounding his filling in left lower molar. No surrounding fluctuance. No sublingual edema. Neck is supple. Lungs are clear and equal bilaterally. Heart is regular rate and rhythm. Extremities are unremarkable. Skin is warm and dry. Remainder of exam is unremarkable. Emergency Department Course and Treatment: Patient was given Warrior x1. He was given prescription for Naprosyn and penicillin. Advised to follow-up with dentist. Advised return to the ED for worsening complaints. Disposition: Discharge home Impression: Odontalgia This note was generated with [employer] dictation software. It may contain incorrect words, spelling, and punctuation that were not noted in review of the chart prior to signing ED Disposition - Plan for ED Patient: Instructions: ED Tooth Pain Prescriptions: Naproxen [Naprosyn] 500 mg PO BID PRN #20 tab Prescription Printed Penicillin V Potassium 500 mg PO 4X/DAY #40 tab Prescription Printed Referrals: Susan Ferris MD [Primary Care Provider] -
[2020-09-07 07:16] VITALS: BP 164/104; PULSE 100; RESP 18; O2SAT 95
[2020-09-07] MEDS: HYDROcodone Bitartrate/Apap 5/325 Tablet PO (07:18)
== END 2020-09-07 07:19 | disposition home or self-care (01) ==
LOC: ED 07:13
PROVIDERS: Emergency Provider Emergency Medicine; PCP Internal Medicine
DX: K08.89 Other specified disorders of teeth and supporting structures (principal)
CPT/HCPCS: 99283

== ENCOUNTER 2021-02-01 02:51 | Emergency (ER) | payer MEDICAID, SELFPAY ==
[2021-02-01 02:52] VITALS: BP 178/113; PULSE 89; RESP 18; TEMP 36.4; O2SAT 96; BMI 30.7
--- NOTE | 2021-02-01 03:13 | ED.VIS.DENTA ---
History of Present Illness Chief Complaint: Sore Throat Detail of Chief Complaint: Tooth ache followed by sore throat Informant: Patient Onset: Days - 3 Context: Gradual Onset Timing: Continuous Quality: Sore Location: Left throat Current Severity: Mild Maximum Severity: Mild Worsened by: Swallowing Relieved by: - - Nothing but has not tried medicines Associated Symptoms: - - Left upper toothache Narrative: Patient states that 3 days ago, one of his left maxillary molars seemed to fall apart while he was eating, gradually started hurting after that, subsequently a left-sided sore throat started. No fevers or chills or loss of taste/smell. Has had dental problems in the past but cannot get into a dentist in a timely fashion, presenting Tuesday night for increased pain in his tooth. No other symptoms. - Past Medical History (1) Asthma Status: Chronic (2) Bipolar 1 disorder Status: Chronic (3) GERD (gastroesophageal reflux disease) Status: Chronic (4) Hypertension Status: Chronic Past Medical History - Allergies and Home Meds Allergies/Adverse Reactions: Allergies No Known Allergies Allergy (Verified 09/07/20 06:59) Primary Care Physician: Susan Ferris MD [Primary Care Provider] - Surgical History: appendectomy Smoking Status: Never smoker Review of Systems General: Denies: Chills, Fever, Sweats Eyes: Denies: Visual changes - bilaterally, Diplopia ENT: Reports: Sore throat, - - Sore throat. Denies: Bilateral ear pain, Rhinorrhea Cardiovascular: Denies: Chest pain, Palpitations Respiratory: Denies: Dyspnea, Cough Gastrointestinal: Denies: Nausea, Vomiting, Diarrhea Skin: Denies: Rash, Wounds Physical Exam Vital Signs/Narrative: Vital Signs Temp Pulse Resp BP Pulse Ox 02/01/21 02:52 97.5 F L 89 18 178/113 H 96 Inital Vital Signs reviewed: Yes General: Well nourished, Well developed, - - Well-appearing no distress Head: Normocephalic, Atraumatic ENT: Moist mucous membranes, No rhinorrhea. Negative for: Sinus tenderness Mouth/Throat: Normal inspection lips/gums, Normal oral mucosa, No focal abscess, No sublingual edema, Focal dental decay - With associated tenderness, defect in tooth posteriorly, #14., - - Mild tonsillar pillar erythema bilaterally. No tonsillar exudates or asymmetry.. Negative for: Dental trauma, Dental abscess, Trismus Neck: Supple, Anterior submandibular lymphadenopathy - Left only Skin: Normal color, No rash, No Trauma Neurological: Alert, Oriented x3, Cranial nerves II-XII grossly intact, Normal Strength, Normal Sensation, Normal Gait Diagnostic/Tx/Re-eval - Medical Decision Making Dental Procedures: Cavet temporary sealant placed - After local anesthesia with Cetacaine spray; discomfort improved afterwards Patient also given an oral Naprosyn, first dose of amoxicillin for possible early dental infection, and prescribed amoxicillin as well as given dental resource list. Nothing focal in his throat, no need to test him for infection at this time in my opinion since we are prescribing him an antibiotic and I think the discomfort is likely related to the lymphadenopathy anyway. ED Disposition - Plan for ED Patient: Disposition: Home or Assisted Living Diagnosis: Dental caries, Odontalgia Instructions: ED Dental Cavity Prescriptions: Amoxicillin 500 mg PO TID #30 tab Transmission Status: Pending to [facility] - [place] - [address] Referrals: Dentist,Your [STAFF PHYSICIAN] - As soon as possible (see attached dental resource list as needed)
[2021-02-01] MEDS: Naproxen 500 MG Tablet PO (03:34)
[2021-02-01] MEDS: AMOXICILLIN 500 MG CAPSULE PO (03:34)
== END 2021-02-01 03:38 | disposition home or self-care (01) ==
LOC: ED 03:23
PROVIDERS: Emergency Provider Emergency Medicine; PCP Nurse Practitioner
DX: K02.9 Dental caries, unspecified (principal); I10 Essential (primary) hypertension; F31.9 Bipolar disorder, unspecified; Z79.899 Other long term (current) drug therapy
CPT/HCPCS: 99282

== ENCOUNTER → 2021-07-01 13:05 | Outpatient (CLI) | payer MEDICAID, SELFPAY ==
--- NOTE | 2021-07-01 13:10 | RAD_ITS ---
STUDY: X-RAY - LUMBAR SPINE REASON FOR EXAM: Male, 50 years old. Back pain. TECHNIQUE: 3 view(s) of the lumbar spine were obtained. COMPARISON: None FINDINGS: Normal lumbar lordosis. There is no substantial scoliosis. There is a normal alignment of the vertebrae. Normal vertebral bodies and endplates. Mild diffuse facet sclerosis. Mild intervertebral disc space narrowing at L3-4 and L4-5 with small osteophytes at these levels. The soft tissue structures are unremarkable. RAD/Lumbar Spine 2 or 3 Views IMPRESSION: Mild lower lumbar spondylosis. No other abnormality. Electronically Signed: Godwin Myles MD at 12:25 EDT , Service support ,
--- NOTE | 2021-07-01 13:15 | RAD_ITS ---
STUDY: X-RAY - CERVICAL SPINE REASON FOR EXAM: Male, 50 years old. Neck back and leg pain. TECHNIQUE: 5 view(s) of the cervical spine were obtained. COMPARISON: None FINDINGS: Normal anterior atlantoaxial articulation. Normal odontoid process. Normal cervical lordosis. Normal vertebral bodies and endplates. Mild uncovertebral and facet sclerosis. Intervertebral disc space narrowing at C4-5, C5-6 and to a lesser degree C6-7 with osteophyte formation most marked at C5-6. The soft tissue structures are unremarkable. RAD/Cerv Spine 2 or 3 Views IMPRESSION: Mild lower cervical spondylosis. Electronically Signed: Godwin Myles MD at 12:24 EDT , Service support ,
== END ==
PROVIDERS: PCP Nurse Practitioner; Referring Provider Anesthesiology Pain Medicine; Visit Provider Anesthesiology Pain Medicine
DX: M47.812 Spondylosis without myelopathy or radiculopathy, cervical region (principal); M47.816 Spondylosis without myelopathy or radiculopathy, lumbar region; M79.606 Pain in leg, unspecified
CPT/HCPCS: 72040; 72100

== ENCOUNTER 2021-08-04 02:33 | Inpatient (IN) | payer MEDICAID, SELFPAY ==
[2021-08-04] VITALS (44 sets, daily range): BP systolic 72–179; BP diastolic 48–125; PULSE 58–94; RESP 10–22; TEMP 35.6–36.9; O2SAT 85–100; BMI 27.7; BMI 26.9
--- NOTE | 2021-08-04 02:50 | CT_ITS ---
STUDY: CT BRAIN WITHOUT CONTRAST REASON FOR EXAM: Male, 50 years old. AMS RADIATION DOSAGE (If Supplied By Facility): CTDIvol = ( 44.99 ) mGy, DLP = ( 846.73 ) mGycm TECHNIQUE: Transaxial CT imaging of the brain was performed without administration of intravenous contrast material. Individualized dose optimization techniques were used for this CT. COMPARISON: No relevant priors. FINDINGS: Normal soft tissue structures. Normal calvarium. Normal size ventricles and extra-axial spaces for the patient''s age. Normal white matter tracts of the cerebral hemispheres. Normal basal ganglia and thalami. Normal brainstem. Normal cerebellum. There is no intracranial hemorrhage. There are no findings of an acute ischemic infarction. Normal visualized paranasal sinuses. CT/Brain/Head without Contrast IMPRESSION: Normal unenhanced CT scan of the brain. Electronically Signed: Ruby Espinosa MD at 3:49 EDT Tel , Service support ,
--- NOTE | 2021-08-04 02:50 | RAD_ITS ---
STUDY: X-RAY CHEST REASON FOR EXAM: Male, 50 years old. Confusion TECHNIQUE: Single AP portable view of the chest. COMPARISON: July 28, 2020 chest x-ray FINDINGS: The lungs are clear and expanded. There is no demonstrated pleural abnormality. Normal size heart. Normal mediastinum and salina. Normal visualized pulmonary arteries. Normal visualized aortic arch and descending thoracic aorta. Normal visualized thoracic spine. There is a prior right side clavicle fracture. There is no demonstrated abnormality of the visualized soft tissue structures of the upper abdomen. RAD/Chest 1 View (Portable) IMPRESSION: No demonstrated acute cardiopulmonary process. Electronically Signed: Ruby Espinosa MD at 3:57 EDT Tel , Service support ,
--- NOTE | 2021-08-04 02:50 | RAD_ITS ---
STUDY: X-RAY - ABDOMEN/PELVIS REASON FOR EXAM: Male, 50 years old. Ingestion TECHNIQUE: Two AP supine views of the abdomen and pelvis. COMPARISON: June 22, 2019 CT abdomen and pelvis FINDINGS: Normal visualized lung bases. There is an unremarkable bowel gas pattern. There is no demonstrated free abdominal air. The visualized liver, spleen and kidneys are grossly normal in size and morphology. Normal soft tissue structures. Normal visualized osseous structures. RAD/Abdomen Single View IMPRESSION: Normal x-ray examination of the abdomen and pelvis. Electronically Signed: Ruby Espinosa MD at 3:55 EDT Tel , Service support ,
--- NOTE | 2021-08-04 02:51 | EKG12_ITS ---
Test Reason : OVERDOSE Blood Pressure : / mmHG Vent. Rate : 086 BPM Atrial Rate : 086 BPM P-R Int : 142 ms QRS Dur : 098 ms QT Int : 406 ms P-R-T Axes : 051 036 031 degrees QTc Int : 485 ms Normal sinus rhythm Prolonged QT Abnormal ECG Confirmed by CHERYL GREER, LILLY ([id number]), news videotape editor LUIS A TEJADA ([id number]) on 08/05/2021 9:17:39 AM Referred By: MR Confirmed By:LILLY LUNA MD
[2021-08-04 03:11] LABS: Absolute Lymphocyte Count 1.53 X10^3/uL (0.83-4.51); Absolute Neutrophil Count 6.8 X10^3/uL (2.0-7.7); Basophil# 0.04 X10^3/uL; Basophil% 0.4 % (0-1); Hematocrit 50.3 % (40-54); Hemoglobin 16.9 g/dL (13.0-16.5); Lymphocyte # 1.53 X10^3/ul (0.83-4.51); Mean Corp Hgb Conc 33.6 g/dL (32-36); Mean Corpuscular Hgb 30.4 pg (27.0-32.0); Mean Corpuscular Volume 90.5 fL (80-94); Mean Platelet Vol. 9.1 fl (6.2-12.0); Monocyte# 0.63 X10^3/uL; NRBC Flagged by Analyzer 0 % (0-5); Neutrophil # 6.77 X10^3/uL (2.7-7.7); Neutrophil % 75.3 % (47-70); Platelet Count 304 K/mm3 (150-450); RBC Distribution Width CV 11.9 % (11.6-14.6); RBC Distribution Width SD 39.5 fl (35.1-43.9); Red Blood Count 5.56 M/mm3 (4.6-6.2)
[2021-08-04] MEDS: Activated Charcoal/Sorbitol 25 GM/120 ML BOT PO (03:12)
[2021-08-04 03:14] LABS: Mucous, Urine 0 SEEN /hpf (<or=2+); Red Blood Cells-Urine 0 SEEN /hpf (0-5); Squamous Epithelial Cells - UA 0 SEEN /hpf (0-5); White Blood Cells 0 SEEN /hpf (0-5)
[2021-08-04 03:16] LABS: Blood Gas Specimen Type VEN; VBG BASE EXCESS 2 mmol/L (-1.0-3.5); VBG Bicarbonate 26 mmol/L (22-26); VBG PO2 32 mmHg (25-40); VBG SO2 63 % (50-70); VBG TCO2 27 mmol/L (23-33); VBG pCO2 38.6 mmHg (41-51); VBG pH 7.43 (7.32-7.42)
[2021-08-04 03:23] LABS: International Normalized Ratio 1.1; Prothrombin Time (Protime)PT. 13.2 SECONDS (11.7-14.9)
[2021-08-04 03:24] LABS: Partial Thromboplast Time 27.8 Seconds (24.1-36.2)
[2021-08-04 03:25] LABS: Color, Urine Yellow (Yellow); Glucose, Dipstick Normal (Normal); Ketone-Dipstick Negative (Negative); Leukocyte Esterase-Dipstick Negative /ul (Negative); Nitrite-Dipstick Negative (Negative); Occult Blood-Urine Negative /ul (Negative); Protein-Dipstick Negative (Negative); Urine Bilirubin Dipstick Negative (Negative); Urine Clarity Clear (Clear); Urine Urobilinogen Normal (Normal)
[2021-08-04 03:30] LABS: ALB/GLOB Ratio 1.2 RATIO (0.9-2.4); AST(SGOT) 28 U/L (15-37); Alanine Aminotransfer ALT/SGPT 42 U/L (16-61); Albumin, Serum 4.5 g/dL (3.2-5.0); Alkaline Phosphatase 96 U/L (45-117); Anion Gap 9 (5-15); BUN 10 mg/dL (7-18); BUN/Creat Ratio 8.2 RATIO (10-20); Calcium,Total 9.5 mg/dL (8.5-10.1); Chloride 105 mmol/L (98-107); Creatinine, Serum 1.22 mg/dL (0.70-1.30); EST Glomerular Filtration Rate 67 mL/min (>60); Est Glom Filt Rate - Afr Amer 81 mL/min (>60); Estimated Creatinine Clearance 70.86 ml/min; Globulin 3.6 g/dL (2.2-4.2); Glucose 100 mg/dL (74-106); Potassium 3.4 mmol/L (3.5-5.1); Protein, Total 8.1 g/dL (6.4-8.2); Sodium Level 141 mmol/L (136-145)
[2021-08-04 03:32] LABS: Bacteria RARE /hpf (None Seen); Hyaline Cast 0-5 SEEN /lpf (0-5)
[2021-08-04 03:38] LABS: Amphetamine Urine VISTA NEGATIVE (<1000 ng/mL); Barbiturate Urine VISTA NEGATIVE (< 200 ng/mL); Benzodiazepine Urine VISTA POSITIVE (< 200 ng/mL); Cocaine Urine VISTA NEGATIVE (< 300 ng/mL); Ecstacy Urine VISTA NEGATIVE (< 500 ng/mL); Methadone Urine VISTA NEGATIVE (< 300 ng/mL); PCP Urine VISTA NEGATIVE (< 25 ng/mL); THC Urine VISTA POSITIVE (< 50 ng/mL); Vista UDS pH Range 5
[2021-08-04 03:39] LABS: Lactic Acid 2.9 mmol/L (0.4-1.9)
[2021-08-04 03:43] LABS: Acetaminophen (Tylenol) Level 140.2 ug/mL (10.0-30.0); Alcohol, Blood (Medical)-Serum < 3.0 mg/dL; Salicylate < 1.7 mg/dL (2.8-20.0)
[2021-08-04 04:15] LABS: Osmolality, Serum 295 mOsm/KG (275-295)
--- NOTE | 2021-08-04 04:15 | EX.ED.DYSGE1 ---
HPI History of Present Illness Chief Complaint: Overdose Narrative Narrative: Patient presenting for evaluation secondary to a possible overdose. History was obtained through EMS as well as the patient's significant other. EMS was dispatched secondary to the patient having decreased responsiveness. Patient significant other came home from work, noted that he was lethargic and difficult to arouse. Between the time that she saw him when she came home, and the next time she checked on him with EMS the patient developed blue staining of his lips and tongue. Patient reports that he was dealing with a headache, and he took a large amount of melatonin Gummies in an attempt to sleep although the Gummies were purple in color. Patient really does not provide any significant history. Patient does have an underlying history of bipolar for which he is on diazepam and bupropion. Patient does have his medical marijuana card, and uses medical marijuana, no other history of drug abuse. Patient denies that he suicidal, significant other states that he has not shown any signs of this recently. She is not sure what in particular could have caused the blue staining around the patient's lips and tongue. There are no's household chemicals at home such as soaps, detergents, fertilizers, or medications that seem to match discoloration. [facility] Medical History Distal paresthesia Migraines Home Medications verapamil 80 mg PO DAILY 05/06/16 [History Last Taken Unknown] diazepam 5 mg PO BID 02/21/17 [History Last Taken Unknown] bupropion HCl [Wellbutrin Sr] 100 mg PO DAILY 12/28/17 [History Last Taken Unknown] metoprolol succinate 50 mg PO DAILY #30 tab 07/28/20 [Rx Last Taken Unknown] temazepam [Restoril] 7.5 mg PO QHS 08/04/21 [History Last Taken Unknown] Allergy/AdvReac Type Severity Reaction Status Date / Time No Known Allergies Allergy Verified 09/07/20 06:59 Social History Smoking Status: Current every day smoker tobacco type: smokeless tobacco ROS ROS ED Review of Systems ROS Unobtainable: due to mental status EXAM Physical Exam Const Vital Signs: 08/04/21 02:33 08/04/21 02:35 08/04/21 03:14 Temperature 97.0 F L 97.3 F L 98.2 F Temperature Source Temporal Temporal Temporal Pulse Rate 94 88 89 Respiratory Rate 16 14 19 H Blood Pressure 156/101 H 156/101 H 136/104 H Blood Pressure Mean 119 119 114 Pulse Ox 95 94 85 Oxygen Delivery Method Room Air Room Air Room Air Positive well nourished and well developed Constitutional Narrative: Patient's not acutely distressed, on arrival he is modestly somnolent but easily arousable, interactive and will follow commands. No lateralizing deficits noted. General Appearance ED: well developed HEENT HEENT Narrative: Patient has blue powder that is staining his mouth lips tongue and oropharynx. Oropharynx is otherwise moist and patent. Negative for trauma or tenderness Eyes EOMs intact bilaterally Eyes Narrative: No evidence of significant myosis or mydriasis. PERRL. Neck no lymphadenopathy and supple Neck Narrative: No meningismus normal range of motion Resp normal respiratory effort and clear to auscultation bilaterally Cardio regular rate, regular rhythm and no murmurs Rate: other Other Details: 2+ radial pulses bilaterally symmetric GI normal to inspection, nondistended, normoactive bowel sounds and non-tender Palpation: soft Extremity normal to inspection General Extremety ED: Negative for tenderness Neuro Neuro Narrative: Patient is arousable, he will follow commands, no lateralizing deficits. He is confused and speaking nonsensically Psych Psych Narrative: Patient denies being suicidal or homicidal but has confusion, and hallucinations, and tangential speech Skin no rashes or lesions noted and no wounds MDM MDM MDM Narrative Medical decision making narrative: Patient presented secondary to a potential intentional overdose. The history really does not match the exam, and I do not think that the patient actually only took melatonin as the color of the melatonin does not match the color that staining his lips and tongue. Broad work-up was obtained. CT imaging the brain was negative per radiology. Chest x-ray and abdominal x-ray by my personal review as well as radiology is negative, no signs of swallowed foreign material on the abdomen. CBC demonstrates some hemoconcentration with hemoglobin of 16.9. Chemistry shows normal renal function potassium modestly low at 3.4, normal hepatic panel. Lactic acid was somewhat elevated at 2.9. Alcohol was found to be negative, patient's acetaminophen level was found to be 140, salicylates were negative, toxicology screen was positive for benzodiazepines and THC per the patient's history and prescription record. Given the patient's elevated acetaminophen level, patient was administer Mucomyst. Patient initially upon arrival was ordered charcoal with sorbitol. Patient while he was in the emergency department started to become slightly more agitated and was up walking around the room picking at his EKG leads, and was given 2 mg of Ativan. I further questions the significant other, and she feels that potentially there was medication in the house that could match the coloration that was Tylenol p.m. Patient does not forthright whether or not he took this. He still not forthright whether or not this was a suicide attempt. Regardless the patient is not medically cleared, and requires further stabilization and observation patient will be admitted to the intensive care unit. Lab Data Labs: Laboratory Results - last 24 hr 08/04/21 08/04/21 08/04/21 03:02 03:02 03:02 WBC 9.0 RBC 5.56 Hgb 16.9 H Hct 50.3 MCV 90.5 MCH 30.4 MCHC 33.6 RDW Std Deviation 39.5 RDW Coeff of Elan 11.9 Plt Count 304 MPV 9.1 Immature Gran % (Auto) 0.300 Neut % (Auto) 75.3 H Lymph % (Auto) 17.0 L [place] % (Auto) 7.0 Eos % (Auto) 0.0 Baso % (Auto) 0.4 Absolute Neuts (auto) 6.8 Absolute Lymphs (auto) 1.53 Nucleated RBC % 0 PT INR APTT Sodium 141 Potassium 3.4 L Chloride 105 Carbon Dioxide 27.0 Anion Gap 9 BUN 10 Creatinine 1.22 Estim Creat Clear Calc 70.86 Est GFR (MDRD) Af Amer 81 Est GFR (MDRD) Non-Af 67 BUN/Creatinine Ratio 8.2 L Glucose 100 Serum Osmolality 295 Lactic Acid Calcium 9.5 Total Bilirubin 0.60 AST 28 ALT 42 Alkaline Phosphatase 96 Total Protein 8.1 Albumin 4.5 Globulin 3.6 Albumin/Globulin Ratio 1.2 Urine Color Urine Clarity Urine pH Ur Specific [place] Urine Protein Urine Glucose (UA) Urine Ketones Urine Occult Blood Urine Nitrite Urine Bilirubin Urine Urobilinogen Ur Leukocyte Esterase Urine RBC Urine WBC Ur Squamous Epith Cells Urine Bacteria Hyaline Casts Urine Mucus Salicylates < 1.7 L Urine Opiates Screen Urine Methadone Screen Acetaminophen 140.2 H* Ur Barbiturates Screen Ur Phencyclidine Scrn Ur Amphetamines Screen U Methamphetamin-MDMA U Benzodiazepines Scrn Urine Cocaine Screen U Cannabinoids Screen Ur Drug Screen Comment Ethyl Alcohol < 3.0 Acetone Level NEGATIVE 08/04/21 08/04/21 08/04/21 03:02 03:10 03:10 WBC RBC Hgb Hct MCV MCH MCHC RDW Std Deviation RDW Coeff of Elan Plt Count MPV Immature Gran % (Auto) Neut % (Auto) Lymph % (Auto) [place] % (Auto) Eos % (Auto) Baso % (Auto) Absolute Neuts (auto) Absolute Lymphs (auto) Nucleated RBC % PT 13.2 INR 1.1 APTT 27.8 Sodium Potassium Chloride Carbon Dioxide Anion Gap BUN Creatinine Estim Creat Clear Calc Est GFR (MDRD) Af Amer Est GFR (MDRD) Non-Af BUN/Creatinine Ratio Glucose Serum Osmolality Lactic Acid 2.9 H* Calcium Total Bilirubin AST ALT Alkaline Phosphatase Total Protein Albumin Globulin Albumin/Globulin Ratio Urine Color Yellow Urine Clarity Clear Urine pH 6.0 Ur Specific [place] 1.010 Urine Protein Negative Urine Glucose (UA) Normal Urine Ketones Negative Urine Occult Blood Negative Urine Nitrite Negative Urine Bilirubin Negative Urine Urobilinogen Normal Ur Leukocyte Esterase Negative Urine RBC 0 SEEN Urine WBC 0 SEEN Ur Squamous Epith Cells 0 SEEN Urine Bacteria RARE Hyaline Casts 0-5 SEEN Urine Mucus 0 SEEN Salicylates Urine Opiates Screen Urine Methadone Screen Acetaminophen Ur Barbiturates Screen Ur Phencyclidine Scrn Ur Amphetamines Screen U Methamphetamin-MDMA U Benzodiazepines Scrn Urine Cocaine Screen U Cannabinoids Screen Ur Drug Screen Comment Ethyl Alcohol Acetone Level 08/04/21 03:10 WBC RBC Hgb Hct MCV MCH MCHC RDW Std Deviation RDW Coeff of Elan Plt Count MPV Immature Gran % (Auto) Neut % (Auto) Lymph % (Auto) [place] % (Auto) Eos % (Auto) Baso % (Auto) Absolute Neuts (auto) Absolute Lymphs (auto) Nucleated RBC % PT INR APTT Sodium Potassium Chloride Carbon Dioxide Anion Gap BUN Creatinine Estim Creat Clear Calc Est GFR (MDRD) Af Amer Est GFR (MDRD) Non-Af BUN/Creatinine Ratio Glucose Serum Osmolality Lactic Acid Calcium Total Bilirubin AST ALT Alkaline Phosphatase Total Protein Albumin Globulin Albumin/Globulin Ratio Urine Color Urine Clarity Urine pH Ur Specific [place] Urine Protein Urine Glucose (UA) Urine Ketones Urine Occult Blood Urine Nitrite Urine Bilirubin Urine Urobilinogen Ur Leukocyte Esterase Urine RBC Urine WBC Ur Squamous Epith Cells Urine Bacteria Hyaline Casts Urine Mucus Salicylates Urine Opiates Screen NEGATIVE Urine Methadone Screen NEGATIVE Acetaminophen Ur Barbiturates Screen NEGATIVE Ur Phencyclidine Scrn NEGATIVE Ur Amphetamines Screen NEGATIVE U Methamphetamin-MDMA NEGATIVE U Benzodiazepines Scrn POSITIVE H Urine Cocaine Screen NEGATIVE U Cannabinoids Screen POSITIVE H Ur Drug Screen Comment Ethyl Alcohol Acetone Level ABG Data ABG results: ABG 08/04/21 03:10 Specimen Type PRIYANKA VBG pH 7.43 H VBG pO2 32 VBG HCO3 26 VBG Total CO2 27 VBG O2 Sat (Calc) 63 VBG Base Excess 2 POC Mix VBG pCO2 Pt Tmp 38.6 L Radiography Diagnostic Testing: Radiology Impression Brain CT 08/04/21 02:50 IMPRESSION: Normal unenhanced CT scan of the brain. Electronically Signed: Ruby Espinosa MD at 3:49 EDT Tel , Service support , Chest X-Ray 08/04/21 02:50 IMPRESSION: No demonstrated acute cardiopulmonary process. Electronically Signed: Ruby Espinosa MD at 3:57 EDT Tel , Service support , KUB X-Ray 08/04/21 02:50 IMPRESSION: Normal x-ray examination of the abdomen and pelvis. Electronically Signed: Ruby Espinosa MD at 3:55 EDT Tel , Service support , EKG Initial EKG: Attestation: I personally reviewed and interpreted this EKG as follows: (Sinus rhythm of 86 modestly prolonged QTC at [address] segments normal T waves normal WA interval no evidence of acute ischemic changes.) Critical Care Time Critical care time (excluding procedures): 30-74 minutes (55), Discussing w/Patient &/or Family/[employer], Discussing w/Consultants, Arranging Admission or Transfer and Performing Direct Patient Care at Bedside Discharge Plan Dx/Rx/DC Orders Clinical Impression: Tylenol overdose, Anticholinergic drug overdose Disposition Disposition: Acute Care Hospital [facility]
[2021-08-04] MEDS: LORazepam 2 MG/ML Syringe IV ×2 (04:22→04:36)
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
--- NOTE | 2021-08-04 05:02 | NURSING ---
Patient vomited charcoal/stomach contents. Cleaned up and patient continues to look around at htings that are not there and remains agitated and combative when trying to clean him up but was redirectable and is resting at this time.
[2021-08-04] MEDS: 0.9% Normal Saline 1,000 ML 125 ML IV ×3 (05:57→18:21)
[2021-08-04] MEDS: 0.9% Saline Lock 10 ML Syringe IV ×5 (05:58→14:02)
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
[2021-08-04 06:11] LABS: Absolute Lymphocyte Count 2.37 X10^3/uL (0.83-4.51); Basophil# 0.05 X10^3/uL; Basophil% 0.7 % (0-1); Eosinophil# 0.02 X10^3/uL; Eosinophils% 0.3 % (0-5); Hematocrit 50.9 % (40-54); Hemoglobin 16.4 g/dL (13.0-16.5); Lymphocyte # 2.37 X10^3/ul (0.83-4.51); Mean Corp Hgb Conc 32.2 g/dL (32-36); Mean Corpuscular Hgb 30.2 pg (27.0-32.0); Mean Corpuscular Volume 93.7 fL (80-94); Monocyte# 0.54 X10^3/uL; Monocyte% 7.7 % (0-10); NRBC Flagged by Analyzer 0 % (0-5); Neutrophil # 3.98 X10^3/uL (2.7-7.7); Platelet Count 320 K/mm3 (150-450); Red Blood Count 5.43 M/mm3 (4.6-6.2)
--- NOTE | 2021-08-04 06:23 | EX.PCM.CONCC ---
Assessment & Plan Assessment/Plan (1) Tylenol overdose: (2) Encephalopathy acute: PLAN: RECOMMENDATIONS: 1. Avoid additional medications with anticholinergic properties. 2. Continue N-acetylcysteine. Recheck acetaminophen, liver function profile and coagulation status this afternoon. 3. Continue Precedex as ordered. Utilize as needed Ativan for additional symptom relief of agitation. 4. Continue gentle IV fluid hydration. 5. Encourage incentive spirometer use and mobilize patient as tolerated. IMPRESSIONS: 1. Encephalopathy Likely related to polypharmacy. Although the exact medication amount ingested is unclear, my concern is for an overdose of Tylenol PM. Therefore, my suspicion is for both acetaminophen and diphenhydramine intoxications. The patient's toxicology screen was also positive for cannabinoids and benzodiazepines. Given the patient's altered mentation and the unknown time from ingestion, he was started on N-acetylcysteine. This will be continued for at least the next 4 hours. We will monitor the patient's acetaminophen and hepatic function profile, along with coagulation status. In the interim, the patient was started on Precedex to help address his agitation. As needed Ativan can be utilized for additional symptom relief of his agitation. Will obtain EKG as well and monitor for QT prolongation. The patient will likely require crisis evaluation once medically stabilized. 2. History of bipolar disorder/hypertension Complicates care, management, recovery and prognosis. Continue home medications as indicated. This note was generated with [employer] dictation software. It may contain incorrect words, spelling, and punctuation that were not noted in checking the note before signing. HPI Consult Data Date of Consult: 08/05/21 HPI Narrative Reason for Consultation: Encephalopathy, Tylenol overdose HPI Narrative: The patient is a 50-year-old male, with a history as outlined below, who presented to the emergency department on August 04 via EMS after being found unresponsive. History pertinent to his hospitalization was obtained primarily via chart review, as the patient is too encephalopathic to provide any additional details. When found by EMS personnel, the patient was noted to have a bluish discoloration around his mouth and lips. There was some concern that the patient may have taken a large number of melatonin containing Gummies versus possible Tylenol PM. Nursing staff did confirm with the patient significant other that approximately 30 tablets of Tylenol PM were missing from a recently purchased bottle On presentation to the emergency department, the patient was noted to be afebrile and hemodynamically stable. Laboratory evaluation revealed no evidence of a leukocytosis. Coagulation profile was within normal limits. Chemistry profile was notable for a potassium of 3.4 with normal creatinine. Lactate was elevated to 2.9. Liver function was within normal limits. Urinalysis was unremarkable. Toxicology screen was positive for acetaminophen with a level 140. The patient was also positive for benzodiazepines and cannabinoids. Alcohol level was negative. CT head was unremarkable. Chest x-ray demonstrated no acute cardiopulmonary process. The patient did become agitated while in the emergency department and did receive IV Ativan. He did receive a bolus of acetylcysteine. Activated charcoal was also administered. He was started on supplemental IV fluids and subsequently admitted to the medical intensive care unit for further management. Throughout the course of the hours, the patient became progressively agitated and combative. A number of pharmacologic interventions were employed. Despite this, the patient remained significantly agitated and was combative with staff. At approximately 0720, the patient became confrontational with staff and was a threat to both himself and others attempting to care for him. I was personally present at the bedside and noted the patient to be non-directable. The decision was made at that time to utilize four-point restraints to prevent harm to the patient and to medical staff attempting to care for him. FORMERLY [facility], [facility] Medical History (Updated 08/04/21 @ 06:[address] Gaston Tirado, DO) Asthma Bipolar disorder Distal paresthesia GERD (gastroesophageal reflux disease) Hypertension Migraines Pneumonia Home Medications verapamil 80 mg PO DAILY 05/06/16 [History Last Taken Unknown] diazepam 5 mg PO BID 02/21/17 [History Last Taken Unknown] bupropion HCl [Wellbutrin Sr] 100 mg PO DAILY 12/28/17 [History Last Taken Unknown] metoprolol succinate 50 mg PO DAILY #30 tab 07/28/20 [Rx Last Taken Unknown] temazepam [Restoril] 7.5 mg PO QHS 08/04/21 [History Last Taken Unknown] Allergy/AdvReac Type Severity Reaction Status Date / Time No Known Allergies Allergy Verified 09/07/20 06:59 Social History Smoking Status: Current every day smoker tobacco type: smokeless tobacco ROS Review of Systems ROS Unobtainable: due to encephalopathy and due to mental status Physical Exam Const alert General Appearance: lethargic Orientation / Consciousness: confused and disoriented Exam Limitations: altered mental status and behavioral limitations HEENT normocephalic and head/scalp atraumatic Eyes PERRL and conjunctivae normal Neck supple General: trachea midline Resp normal respiratory effort Auscultation: Negative for rales, rhonchi or wheezes Cardio regular rate and regular rhythm GI normal to inspection, nondistended, normoactive bowel sounds Extremity no clubbing, cyanosis or edema Skin no rashes or lesions noted Neuro no focal motor deficits Psych Psych Narrative: Intermittently agitated and restless Lab / Micro Data Result Diagrams: 08/04/21 06:05 08/04/21 06:05 Labs: Laboratory Results - last 24 hr 08/04/21 03:02: WBC 9.0, RBC 5.56, Hgb 16.9 H, Hct 50.3, MCV 90.5, MCH 30.4, MCHC 33.6, RDW Std Deviation 39.5, RDW Coeff of Elan 11.9, Plt Count 304, MPV 9.1, Immature Gran % (Auto) 0.300, Neut % (Auto) 75.3 H, Lymph % (Auto) 17.0 L, [place] % (Auto) 7.0, Eos % (Auto) 0.0, Baso % (Auto) 0.4, Absolute Neuts (auto) 6.8, Absolute Lymphs (auto) 1.53, Nucleated RBC % 0 08/04/21 03:02: Sodium 141, Potassium 3.4 L, Chloride 105, Carbon Dioxide 27.0, Anion Gap 9, BUN 10, Creatinine 1.22, Estim Creat Clear Calc 70.86, Est GFR (MDRD) Af Amer 81, Est GFR (MDRD) Non-Af 67, BUN/Creatinine Ratio 8.2 L, Glucose 100, Calcium 9.5, Total Bilirubin 0.60, AST 28, ALT 42, Alkaline Phosphatase 96, Total Protein 8.1, Albumin 4.5, Globulin 3.6, Albumin/Globulin Ratio 1.2 08/04/21 03:02: Serum Osmolality 295, Salicylates < 1.7 L, Acetaminophen 140.2 H*, Ethyl Alcohol < 3.0, Acetone Level NEGATIVE 08/04/21 03:02: Lactic Acid 2.9 H* 08/04/21 03:10: PT 13.2, INR 1.1, APTT 27.8 08/04/21 03:10: Urine Color Yellow, Urine Clarity Clear, Urine pH 6.0, Ur Specific [place] 1.010, Urine Protein Negative, Urine Glucose (UA) Normal, Urine Ketones Negative, Urine Occult Blood Negative, Urine Nitrite Negative, Urine Bilirubin Negative, Urine Urobilinogen Normal, Ur Leukocyte Esterase Negative, Urine RBC 0 SEEN, Urine WBC 0 SEEN, Ur Squamous Epith Cells 0 SEEN, Urine Bacteria RARE, Hyaline Casts 0-5 SEEN, Urine Mucus 0 SEEN 08/04/21 03:10: Urine Opiates Screen NEGATIVE, Urine Methadone Screen NEGATIVE, Ur Barbiturates Screen NEGATIVE, Ur Phencyclidine Scrn NEGATIVE, Ur Amphetamines Screen NEGATIVE, U Methamphetamin-MDMA NEGATIVE, U Benzodiazepines Scrn POSITIVE H, Urine Cocaine Screen NEGATIVE, U Cannabinoids Screen POSITIVE H, Ur Drug Screen Comment 08/04/21 06:05: WBC 7.0, RBC 5.43, Hgb 16.4, Hct 50.9, MCV 93.7, MCH 30.2, MCHC 32.2, RDW Std Deviation 42.0, RDW Coeff of Elan 12.0, Plt Count 320, MPV 9.0, Immature Gran % (Auto) 0.300, Neut % (Auto) 57.0, Lymph % (Auto) 34.0, [place] % (Auto) 7.7, Eos % (Auto) 0.3, Baso % (Auto) 0.7, Absolute Neuts (auto) 4.0, Absolute Lymphs (auto) 2.37, Nucleated RBC % 0 Micro: Microbiology 08/04/21 05:15 Nasal Secretion SARS-CoV-2 Antigen (Rapid) - Final ABG Data ABG results: ABG 08/04/21 03:10 Specimen Type PRIYANKA VBG pH 7.43 H VBG pO2 32 VBG HCO3 26 VBG Total CO2 27 VBG O2 Sat (Calc) 63 VBG Base Excess 2 POC Mix VBG pCO2 Pt Tmp 38.6 L Radiology Impression Brain CT 08/04/21 02:50 IMPRESSION: Normal unenhanced CT scan of the brain. Electronically Signed: Ruby Espinosa MD at 3:49 EDT Tel , Service support , Chest X-Ray 08/04/21 02:50 IMPRESSION: No demonstrated acute cardiopulmonary process. Electronically Signed: Ruby Espinosa MD at 3:57 EDT Tel , Service support , KUB X-Ray 08/04/21 02:50 IMPRESSION: Normal x-ray examination of the abdomen and pelvis. Electronically Signed: Ruby Espinosa MD at 3:55 EDT Tel , Service support , Charges/Coding Visit Charges Inpatient E&M: 48409 Init Hosp L3
[2021-08-04 06:28] LABS: ALB/GLOB Ratio 1.1 RATIO (0.9-2.4); AST(SGOT) 28 U/L (15-37); Alanine Aminotransfer ALT/SGPT 51 U/L (16-61); Alkaline Phosphatase 86 U/L (45-117); Anion Gap 14 (5-15); BUN 10 mg/dL (7-18); BUN/Creat Ratio 9.1 RATIO (10-20); Calcium,Total 8.6 mg/dL (8.5-10.1); Chloride 104 mmol/L (98-107); EST Glomerular Filtration Rate 75 mL/min (>60); Est Glom Filt Rate - Afr Amer 91 mL/min (>60); Estimated Creatinine Clearance 78.59 ml/min; Globulin 3.6 g/dL (2.2-4.2); Glucose 117 mg/dL (74-106); Potassium 3.7 mmol/L (3.5-5.1); Protein, Total 7.6 g/dL (6.4-8.2); Sodium Level 145 mmol/L (136-145)
--- NOTE | 2021-08-04 06:40 | NURSING ---
Pt significant other on phone, reports Tylenol PM bottle at home was b ought last , Jul 30, is a 40 tablet bottle and only 7 are left. Daria (significant other) reports pt takes Wellbutrin, Omerprazole, metoprolol, valium, restoril and tylenol but is not sure of exact doses. Pt follows with [facility] in [place].
[2021-08-04 06:42] LABS: Acetaminophen (Tylenol) Level 102.6 ug/mL (10.0-30.0)
[2021-08-04 07:08] LABS: Reflex Lactate? Y
[2021-08-04 07:27] LABS: Bilirubin, Direct 0.08 mg/dL (0.00-0.30)
[2021-08-04] MEDS: Ziprasidone IM 20 MG/ML VIAL IM (07:36)
--- NOTE | 2021-08-04 08:06 | EKG12_ITS ---
Test Reason : Blood Pressure : / mmHG Vent. Rate : 061 BPM Atrial Rate : 061 BPM P-R Int : 160 ms QRS Dur : 100 ms QT Int : 516 ms P-R-T Axes : 054 047 037 degrees QTc Int : 519 ms Normal sinus rhythm Prolonged QT Abnormal ECG Confirmed by CHERYL GREER, LILLY ([id number]), associate editor LUIS A TEJADA ([id number]) on 08/06/2021 9:46:22 AM Referred By: ARON Confirmed By:LILLY LUNA MD
[2021-08-04 08:37] LABS: Lactic Acid 8.1 mmol/L (0.4-1.9)
[2021-08-04] MEDS: CHLORHEXIDINE GLUC 2% CLOTH 1 EACH TOWELETTE TOPICAL (09:20)
[2021-08-04 10:50] LABS: International Normalized Ratio 1.2; Prothrombin Time (Protime)PT. 14.2 SECONDS (11.7-14.9)
[2021-08-04 11:26] LABS: Acetaminophen (Tylenol) Level 33.7 ug/mL (10.0-30.0)
--- NOTE | 2021-08-04 13:00 | NURSING ---
Attempted to removed L ankle restraint at this time when pt completely woke up frightened, asking where am I?! Explained that pt has been in the hospital for approx 12 hrs at this point d/t the fact that we suspected he took an over dose of tylenol PM. Explained how EMS was called to his home after his girlfriend came home and found him almost unresponsive and blue. Pt denies that this was a suicide attempt and states that he has an extremely hard time sleeping on a regular basis and that he is sometimes up for days. He took the tylenol PM desperate to sleep. Pt asked if he could have to which this RN replied yes if your girlfriend wouldn't have found you. Explained that we have been checking his acetaminophen levels at regular intervals to make sure they normalize. Also explained that he woke up in 4 pt restraints because he was extremely combative and agitated threatening harm to self and others this morning. Explained to the pt he received IM geodon to help control his behaviors as well and a continuous sedation medication through his IV, which is almost off at this time. Restraints removed from all limbs. Hospital HRO Edilson present outside of room during this interaction to maintain safety. Pt aware that his S.O. Daria has been updated on all events and that a district sales representative from the counseling center would likely have to evaluate him for discharge needs.
--- NOTE | 2021-08-04 14:00 | PCS.PANDOC ---
PANDEMIC DOCUMENTATION INITIATED: Date: 07/13/2021 Time: 190
[2021-08-04 14:08] LABS: Acetaminophen (Tylenol) Level 20.3 ug/mL (10.0-30.0)
--- NOTE | 2021-08-04 14:32 | CASEMGMT ---
SW participated in ICU rounds this morning. SW will continue to follow, not able to speak w/pt today due to confusion. IDALIA Michael
--- NOTE | 2021-08-04 15:30 | CASEMGMT ---
As per RN, pt is alert and oriented now. SW met w/pt in room, in regard to overdose, and to assess for suicidality. Pt initially states he wants go home to his , is wondering if he can go home today. SW explained that medically he may not be ready yet. SW then inquired w/pt if he remembers what happened that led to his hospitalization. Pt states he has hypersomnia, has had this since he was a kid. Pt states he has not been able to sleep, has slept 30 minutes each night for the last 4-5 nights. Pt states he wanted to sleep. Pt stated initially he has taken sleeping pills in the past but they have stopped working. Pt states took 6 Tylenol PM over 4 hours. Pt denies that he took any more than this. Pt states he just wanted to sleep, nothing more. He states he gets migraines too when he cannot sleep. SW asked pt from the [place] -Suicide Severity Rating Scale, Screen Version, if pt has wished he were or wished he could go to sleep and not wake up. Pt states no. SW asked if he has wished he were or has had thoughts of killing himself, pt states no. SW asked if he has done anything, stared to do anything, or prepared to do anything to end his life, pt answers no. Pt denies being suicidal, states that this was not a cry for help. Pt states has been bipolar his whole life. Pt states does follow up w/Dr. [facility] at [facility], and never misses an appointment. Pt is not in counseling at present, and declined any referrals for this. Pt plans to continue to follow up w/Dr. Travis for medication management. SW asked about support. Pt states his girlfriend(whom he referred to as his earlier) is supportive, they have been together for 8 years. Pt also states his mother is supportive. Pt asked again about going home today, SW again reiterated that he may not be medically ready. SW asked pt what he will do next time if he cannot sleep, pt states he won't take Tylenol PM again like he did this time. Pt states he does not like being in the hospital. Pt denying being suicidal at this time, denying wanting any additional referrals for support. SW remains available as needed for support to pt. IDALIA Michael
--- NOTE | 2021-08-04 16:19 | PN.HOSP_ITS ---
Subjective Subjective Patient seen and examined. He was admitted with a complaint of tylenol overdose; he was suspected to have taken several tablets of Tylenol pm. Tylenol level was 140 on admission. He was admitted to the ICU and subsequently started on N- acetylcysteine. Patient seen and examined. He was in restraints and was somnolent at time of review. Unable to do review of systems on account of patient's lethargy. Objective Data Objective Data Vital Signs: Vital Signs Temp Pulse Resp BP Pulse Ox 96.5 F L 59 L 13 137/83 H 98 08/04/21 15:00 08/04/21 15:30 08/04/21 15:00 08/04/21 15:00 08/04/21 15:00 Oxygen Flow Rate (L/min) 2 Oxygen Delivery Method Nasal Cannula Weight: 177 lb 0.499 oz Body Mass Index (BMI) 26.9 Intake & Output: Intake and Output for Last 24 Hours 08/02/21 08/03/21 08/04/21 23:59 23:59 23:59 Intake Total 1889.43 / 1889.43 Output Total 500 / 500 Balance 1389.43 / 1389.43 Lab / Micro Data Result Diagrams: 08/04/21 06:05 08/04/21 06:05 Labs: Laboratory Results - last 24 hr 08/04/21 03:02: WBC 9.0, RBC 5.56, Hgb 16.9 H, Hct 50.3, MCV 90.5, MCH 30.4, MCHC 33.6, RDW Std Deviation 39.5, RDW Coeff of Elan 11.9, Plt Count 304, MPV 9.1, Immature Gran % (Auto) 0.300, Neut % (Auto) 75.3 H, Lymph % (Auto) 17.0 L, [place] % (Auto) 7.0, Eos % (Auto) 0.0, Baso % (Auto) 0.4, Absolute Neuts (auto) 6.8, Absolute Lymphs (auto) 1.53, Nucleated RBC % 0 08/04/21 03:02: Sodium 141, Potassium 3.4 L, Chloride 105, Carbon Dioxide 27.0, Anion Gap 9, BUN 10, Creatinine 1.22, Estim Creat Clear Calc 70.86, Est GFR (MDRD) Af Amer 81, Est GFR (MDRD) Non-Af 67, BUN/Creatinine Ratio 8.2 L, Glucose 100, Calcium 9.5, Total Bilirubin 0.60, AST 28, ALT 42, Alkaline Phosphatase 96, Total Protein 8.1, Albumin 4.5, Globulin 3.6, Albumin/Globulin Ratio 1.2 08/04/21 03:02: Serum Osmolality 295, Salicylates < 1.7 L, Acetaminophen 140.2 H*, Ethyl Alcohol < 3.0, Acetone Level NEGATIVE 08/04/21 03:02: Lactic Acid 2.9 H* 08/04/21 03:10: PT 13.2, INR 1.1, APTT 27.8 08/04/21 03:10: Urine Color Yellow, Urine Clarity Clear, Urine pH 6.0, Ur Specific [place] 1.010, Urine Protein Negative, Urine Glucose (UA) Normal, Urine Ketones Negative, Urine Occult Blood Negative, Urine Nitrite Negative, Urine Bilirubin Negative, Urine Urobilinogen Normal, Ur Leukocyte Esterase Negative, Urine RBC 0 SEEN, Urine WBC 0 SEEN, Ur Squamous Epith Cells 0 SEEN, Urine Bacteria RARE, Hyaline Casts 0-5 SEEN, Urine Mucus 0 SEEN 08/04/21 03:10: Urine Opiates Screen NEGATIVE, Urine Methadone Screen NEGATIVE, Ur Barbiturates Screen NEGATIVE, Ur Phencyclidine Scrn NEGATIVE, Ur Amphetamines Screen NEGATIVE, U Methamphetamin-MDMA NEGATIVE, U Benzodiazepines Scrn POSITIVE H, Urine Cocaine Screen NEGATIVE, U Cannabinoids Screen POSITIVE H, Ur Drug Screen Comment 08/04/21 06:05: WBC 7.0, RBC 5.43, Hgb 16.4, Hct 50.9, MCV 93.7, MCH 30.2, MCHC 32.2, RDW Std Deviation 42.0, RDW Coeff of Elan 12.0, Plt Count 320, MPV 9.0, Immature Gran % (Auto) 0.300, Neut % (Auto) 57.0, Lymph % (Auto) 34.0, [place] % (Auto) 7.7, Eos % (Auto) 0.3, Baso % (Auto) 0.7, Absolute Neuts (auto) 4.0, Absolute Lymphs (auto) 2.37, Nucleated RBC % 0 08/04/21 06:05: Sodium 145, Potassium 3.7, Chloride 104, Carbon Dioxide 27.0, Anion Gap 14, BUN 10, Creatinine 1.10, Estim Creat Clear Calc 78.59, Est GFR (MDRD) Af Amer 91, Est GFR (MDRD) Non-Af 75, BUN/Creatinine Ratio 9.1 L, Glucose 117 H, Calcium 8.6, Total Bilirubin 0.70, AST 28, ALT 51, Alkaline Phosphatase 86, Total Protein 7.6, Albumin 4.0, Globulin 3.6, Albumin/Globulin Ratio 1.1 08/04/21 06:05: Acetaminophen 102.6 H* 08/04/21 06:08: Total Bilirubin Cancelled, Direct Bilirubin 0.08, AST Cancelled, ALT Cancelled, Alkaline Phosphatase Cancelled, Total Protein Cancelled, Albumin Cancelled, Globulin Cancelled 08/04/21 08:00: Lactic Acid 8.1 H* 08/04/21 10:30: Acetaminophen 33.7 H 08/04/21 10:30: PT 14.2, INR 1.2 08/04/21 13:25: Acetaminophen 20.3 Micro: Microbiology 08/04/21 05:15 Nasal Secretion SARS-CoV-2 Antigen (Rapid) - Final ABG Data ABG results: ABG 08/04/21 03:10 Specimen Type PRIYANKA VBG pH 7.43 H VBG pO2 32 VBG HCO3 26 VBG Total CO2 27 VBG O2 Sat (Calc) 63 VBG Base Excess 2 POC Mix VBG pCO2 Pt Tmp 38.6 L Radiography Diagnostic Testing: Radiology Impression Brain CT 08/04/21 02:50 IMPRESSION: Normal unenhanced CT scan of the brain. Electronically Signed: Ruby Espinosa MD at 3:49 EDT Tel , Service support , Chest X-Ray 08/04/21 02:50 IMPRESSION: No demonstrated acute cardiopulmonary process. Electronically Signed: Ruby Espinosa MD at 3:57 EDT Tel , Service support , KUB X-Ray 08/04/21 02:50 IMPRESSION: Normal x-ray examination of the abdomen and pelvis. Electronically Signed: Ruby Espinosa MD at 3:55 EDT Tel , Service support , Physical Exam Const Constitutional Narrative: lethargic, somnolent Exam Limitations: altered mental status HEENT head/scalp atraumatic and moist oral mucous membranes Head and Scalp: normocephalic Eyes PERRL and conjunctivae normal Neck no lymphadenopathy Resp normal respiratory effort, no retractions, no use of accessory muscles and clear to auscultation bilaterally GI normal to inspection, nondistended, normoactive bowel sounds, soft to palpation, non-tender and non-distended Extremity normal to inspection and no clubbing, cyanosis or edema Peripheral Pulses: Yes pulses 2+ throughout Skin no rashes or lesions noted Neuro Neuro Narrative: lethargic, somnolent Psych Psych Narrative: lethargic Assessment & Plan Assessment/Plan (1) Encephalopathy acute: (2) Tylenol overdose: PLAN: #Acetaminophen overdose * unclear if it was accidental or intentional * admitted to the ICU * received activated charcoal adn mucormyst * time of ingestion unknown * repeat tylenol level was 20 later this afternoon * critical care on board * #Acute metabolic encephalopathy due to tylenol and anticholinergic drug overdose * as above * received activated charcoal also. * fall precautions * #History of bipolar disorder: on ativan prn. regular meds held on admission due to encephalopathy #Hypertension: on metoprolol and verapamil DVT prophylaxis; SCDs Disposition: will need evaluation by mental health crises team to determine disposition. Charges/Coding Visit Charges Inpatient E&M: 06343 [facility] Hosp L3
--- NOTE | 2021-08-04 17:21 | NURSING ---
report called to KATHERINE Tapia for transfer to [facility]
[2021-08-04 23:23] LABS: Lactic Acid 1.2 mmol/L (0.4-1.9)
[2021-08-05] MEDS: 0.9% Normal Saline 1,000 ML 125 ML IV (02:34)
[2021-08-05 02:40] VITALS: BP 167/111; PULSE 72; RESP 18; TEMP 36.9; O2SAT 98
--- NOTE | 2021-08-05 02:41 | NURSING ---
pt pulled out IV, IV restarted successfully
[2021-08-05 03:00] VITALS: PULSE 91
[2021-08-05 07:55] VITALS: O2SAT 96
[2021-08-05 08:27] VITALS: BP 165/110; PULSE 77; RESP 16; TEMP 37.1; O2SAT 95
[2021-08-05 09:16] LABS: Absolute Lymphocyte Count 2.31 X10^3/uL (0.83-4.51); Absolute Neutrophil Count 5.6 X10^3/uL (2.0-7.7); Basophil# 0.04 X10^3/uL; Basophil% 0.5 % (0-1); Eosinophil# 0.04 X10^3/uL; Eosinophils% 0.5 % (0-5); Hematocrit 43.2 % (40-54); Lymphocyte # 2.31 X10^3/ul (0.83-4.51); Lymphocyte % 26.8 % (19-41); Mean Corp Hgb Conc 32.4 g/dL (32-36); Mean Corpuscular Volume 92.7 fL (80-94); Mean Platelet Vol. 9.1 fl (6.2-12.0); Monocyte# 0.57 X10^3/uL; Monocyte% 6.6 % (0-10); NRBC Flagged by Analyzer 0 % (0-5); Neutrophil # 5.64 X10^3/uL (2.7-7.7); Neutrophil % 65.3 % (47-70); Platelet Count 235 K/mm3 (150-450); RBC Distribution Width CV 12.3 % (11.6-14.6); RBC Distribution Width SD 42.5 fl (35.1-43.9); Red Blood Count 4.66 M/mm3 (4.6-6.2); White Blood Count 8.6 K/mm3 (4.4-11.0)
[2021-08-05 09:40] LABS: ALB/GLOB Ratio 1.1 RATIO (0.9-2.4); AST(SGOT) 19 U/L (15-37); Alanine Aminotransfer ALT/SGPT 29 U/L (16-61); Albumin, Serum 3.3 g/dL (3.2-5.0); Alkaline Phosphatase 75 U/L (45-117); Anion Gap 2 (5-15); BUN 7 mg/dL (7-18); Calcium,Total 7.8 mg/dL (8.5-10.1); Chloride 113 mmol/L (98-107); Creatinine, Serum 0.78 mg/dL (0.70-1.30); EST Glomerular Filtration Rate 112 mL/min (>60); Est Glom Filt Rate - Afr Amer 136 mL/min (>60); Estimated Creatinine Clearance 110.83 ml/min; Globulin 2.9 g/dL (2.2-4.2); Glucose 101 mg/dL (74-106); Potassium 3.2 mmol/L (3.5-5.1); Protein, Total 6.2 g/dL (6.4-8.2); Sodium Level 142 mmol/L (136-145)
--- NOTE | 2021-08-05 09:55 | NURSING ---
Spoke with crisis staff. They have given clearance for discharge and will fax their note for the chart from their office.
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
[2021-08-05 10:44] VITALS: PULSE 80
[2021-08-05] MEDS: buPROPion (SR) 100 MG TABLET.SA PO (10:44)
[2021-08-05] MEDS: Metoprolol(XL)Succ 50 MG Tablet PO (10:44)
[2021-08-05] MEDS: diazePAM 5 MG Tablet PO (10:46)
--- NOTE | 2021-08-06 16:28 | CASEMGMT ---
RN CM Discharge Follow-up Phone Call: RHONDA:Tari Strata: 3 Call Date: 08/06/21 Discharge Date:08/05/21 Time of Call: 1625 Admitting Diagnosis: Tylenol OD This RN CM attempted to contact pt via phone for discharge follow-up. Nonidentifying voicemail received and nondescript message left requesting a return call. Kirsten Smith RN CM
== END 2021-08-05 10:55 | disposition home or self-care (01) | DRG 812 ==
LOC: ED 04:25 → ICU 05:16 → PCU 19:03
PROVIDERS: Internal Medicine Critical Care Medicine; Nurse Practitioner Family; Admitting Provider Family Medicine; Emergency Provider Emergency Medicine; PCP Nurse Practitioner; Visit Provider Student in an Organized Health Care Education/Training Program
DX: T39.1X1A Poisoning by 4-Aminophenol derivatives, accidental (unintentional), initial encounter (principal); G92 Toxic encephalopathy; Y92.009 Unspecified place in unspecified non-institutional (private) residence as the place of occurrence of the external cause; I10 Essential (primary) hypertension; F31.9 Bipolar disorder, unspecified; F17.290 Nicotine dependence, other tobacco product, uncomplicated; Z79.899 Other long term (current) drug therapy
CPT/HCPCS: 36415; 70450; 71045; 74018; 80053; 80307; 80329; 81001; 82009; 82077; 82248; 82803; 83605; 83930; 85025; 85610; 85730; 87426; 93005; 99285; J7030; A4216; G0480; J3486

== ENCOUNTER 2021-08-09 22:30 | Emergency (ER) | payer MEDICAID, SELFPAY ==
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
[2021-08-09 22:31] VITALS: BP 168/107; PULSE 109; RESP 18; TEMP 37.3; O2SAT 96; BMI 28.4
[2021-08-09 22:36] VITALS: BP 168/107; PULSE 108; RESP 18; TEMP 37.3; O2SAT 96
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
--- NOTE | 2021-08-10 00:30 | RAD_ITS ---
HISTORY: Pain EXAMINATION/TECHNIQUE: XR Hand Min 3 Views: Left hand COMPARISON: None FINDINGS: SOFT TISSUES: Mild soft tissue swelling. No radiopaque foreign body identified. BONES/JOINTS: No acute fracture or subluxation. Normal alignment. Preservation of the joint spaces. No suspicious osseous lesion. RAD/Hand Min 3 Views IMPRESSION: Left hand soft tissue swelling. at 0137 Reported and signed by: Song Morales MD Electronically Signed: Song Morales MD at 1:36 EDT Tel , Service support ,
--- NOTE | 2021-08-10 00:30 | RAD_ITS ---
HISTORY: PAIN EXAMINATION/TECHNIQUE: XR Hand Min 3 Views: Right hand COMPARISON: None FINDINGS: SOFT TISSUES: Mild soft tissue swelling. No radiopaque foreign body identified. BONES/JOINTS: No acute fracture or subluxation. Normal alignment. Preservation of the joint spaces. No suspicious osseous lesion. RAD/Hand Min 3 Views IMPRESSION: Right hand soft tissue swelling. at 0137 Reported and signed by: Song Morales MD Electronically Signed: Song Morales MD at 1:36 EDT Tel , Service support ,
[2021-08-10 00:41] VITALS: BP 164/110; PULSE 103; RESP 18; O2SAT 96
[2021-08-10] MEDS: Diphth,Pertuss(Acell),Tet Vac 0.5 ML Vial IM (00:47)
[2021-08-10 02:01] VITALS: BP 160/109; PULSE 100; RESP 18; O2SAT 96
== END 2021-08-10 02:17 | disposition home or self-care (01) ==
PROVIDERS: Emergency Provider Emergency Medicine; PCP Nurse Practitioner
DX: S22.058A Other fracture of T5-T6 vertebra, initial encounter for closed fracture (principal); S60.222A Contusion of left hand, initial encounter; S60.221A Contusion of right hand, initial encounter; S00.01XA Abrasion of scalp, initial encounter; S40.812A Abrasion of left upper arm, initial encounter; S40.811A Abrasion of right upper arm, initial encounter; S80.812A Abrasion, left lower leg, initial encounter; S80.811A Abrasion, right lower leg, initial encounter; S20.91XA Abrasion of unspecified parts of thorax, initial encounter; Y09 Assault by unspecified means; Y93.89 Activity, other specified; Y92.828 Other wilderness area as the place of occurrence of the external cause; Y99.8 Other external cause status; M25.552 Pain in left hip; G89.29 Other chronic pain; I10 Essential (primary) hypertension; F31.9 Bipolar disorder, unspecified; Z79.899 Other long term (current) drug therapy
CPT/HCPCS: 70450; 72125; 72128; 72131; 73090; 73130; 73502; 90471; 90715; 99284